=== PATIENT | female | born 1950 | race Caucasian/White ===

== ENCOUNTER 2020-12-30 11:24 | Outpatient (CLI) | payer MEDICARE, SELFPAY ==
--- NOTE | 2020-12-30 12:00 | MM_ITS ---
WS: [id number] BILATERAL SCREENING DIGITAL MAMMOGRAM WITH CAD HISTORY: screening mammogram COMPARISON: 06/22/2019 Bilateral CC and MLO views submitted. Computer aided detection analyzed. Breast composition: There are scattered areas of fibroglandular density. No suspicious masses, microc alcifications or architectural distortion. MM/[id number] IMPRESSION: BI-RADS: 1-Negative FOLLOW UP: 1 Year Follow-up
== END 2020-12-30 11:25 | disposition home or self-care (01) ==
LOC: RADSHAW 11:27
PROVIDERS: PCP Family Medicine; Visit Provider Family Medicine
DX: Z12.31 Encounter for screening mammogram for malignant neoplasm of breast (principal)
CPT/HCPCS: 77067

== ENCOUNTER → 2021-01-13 13:01 | Outpatient (BNVA) | payer MEDICARE, SELFPAY | PROVIDERS: PCP Family Medicine; Visit Provider Family Medicine | DX: Z13.6 Encounter for screening for cardiovascular disorders (principal); C18.9 Malignant neoplasm of colon, unspecified; R53.83 Other fatigue; E55.9 Vitamin D deficiency, unspecified; M25.551 Pain in right hip; Z68.1 Body mass index [BMI] 19.9 or less, adult | CPT/HCPCS: 85025 ==

== ENCOUNTER → 2021-01-14 09:38 | Outpatient (BNVA) | payer MEDICARE, SELFPAY | PROVIDERS: PCP Family Medicine; Visit Provider Family Medicine | DX: Z13.6 Encounter for screening for cardiovascular disorders (principal); C18.9 Malignant neoplasm of colon, unspecified; R53.83 Other fatigue; E55.9 Vitamin D deficiency, unspecified; M25.551 Pain in right hip; Z68.1 Body mass index [BMI] 19.9 or less, adult | CPT/HCPCS: 80053; 80061; 82306; 82378; 82607; 84439; 84443; 84481 ==

== ENCOUNTER 2021-02-06 06:00 | Outpatient (RCR) | payer MEDICARE, SELFPAY | END 2021-02-19 23:59 | disposition home or self-care (01) | LOC: SPT 06:00 | PROVIDERS: PCP Family Medicine; Referring Provider Family Medicine; Visit Provider Family Medicine | DX: M25.551 Pain in right hip (principal) | CPT/HCPCS: 97110; 97161 ==

== ENCOUNTER 2021-02-07 10:55 | Outpatient (CLI) | payer MEDICARE, SELFPAY ==
--- NOTE | 2021-02-10 10:27 | ONC CON_ITS ---
Dr. Garcia New Patient Note Patient: Emily Arias Unit #: [id number]: 1950 Dicatated By: Jose Garcia M.D.Date of Visit: Feb 07, 2021 Onc MED New Patient/Consult Referring Physician: Dr. JEAN PAUL SUN D.O. Chief Complaint: Elevated platelet count. History of Present Illness: This is a 70-year-old woman who has had persistent thrombocytosis since 2016, most likely to be due to essential thrombocythemia. She has been in good general health. She does have a history of having undergone partial colon resection for colon cancer in 1999. Those records are not available. By her description, the primary tumor was apparently in the area of the cecum. She thought it was an early lesion, but she was given adjuvant chemotherapy. There has been no evidence of recurrence. 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 Her evaluation showed no evidence for a reactive thrombocytosis. She was followed expectantly. As of April 2020 her platelet count had increased only slightly, to 534,000 with her hemoglobin normal at 13.7 g and white blood cell count normal 8300. She had recently moved to this area, and she is seen now for further management. As noted, she has been in good general health. She has been taking a vitamin supplement for osteopenia. She also takes progesterone every 3 days to help with mood swings. She has no other ongoing medical illnesses. She had recently started meloxicam for her acute onset of pain in the right posterior hip area. She also has started physical therapy for that. Her other surgeries include hysterectomy/bilateral salpingo-oophorectomy for uterine fibroid, appendectomy, tubal ligation, and tonsillectomy. She has a history of smoking 1/2 pack of cigarettes daily for 30 years, but she quit smoking in 2007. She has been feeling pretty good generally. She has good energy and activity tolerance. ECOG score is 0. She does not have good appetite, but her weight is stable. She has no fever, night sweats, or hot flashes. She does tend to have sinus drainage in the mornings. She does not complain of shortness of breath, cough, or chest pain. Recently she has had some diarrhea, attributable to the meloxicam. She has no other GI or complaints. She has had no other joint or bone pain. She does not complain of headache or dizziness, and she has no focal neurologic symptoms. Past Medical History: Her medical history includes osteopenia and a history of colon cancer in 1999. Past Surgical History: Her surgical/procedural history includes appendectomy, colon resection, hysterectomy/bilateral salpingectomy-oophorectomy, tonsillectomy, and tubal ligation. Medications: [place] Essentials Basic 1 Liquid Oral daily, Progesterone 1 (100 mg) Capsule Oral q 3 days, Turmeric 1 (100 mg) Tablet Oral daily. Allergies: No Known Allergies. Social History: She is , and she is retired. 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 She has a history of smoking 1/2 pack of cigarettes daily for 30 years. She quit smoking in 2007. She has only rare alcohol use. Family History: Father at age 89 with liver disease, presumed to be alcoholic cirrhosis. Mother had COPD but lived to age 90. She has one brother who she thinks is in good health. Review Of Symptoms: Constitutional - She has good energy and activity tolerance. Her appetite is not very good, but her weight is stable. No fever, night sweats, or hot flashes. ECOG score is 0, Eyes - She is being followed for early cataracts, ENMT - No hearing loss or tinnitus. She tends to have sinus drainage in the mornings. No mouth sores. No sore throat or difficulty swallowing, Hematologic/Lymphatic - No abnormal bruising or bleeding, Respiratory - No shortness of breath. No cough. No pleuritic pain or hemoptysis, Cardiovascular - No angina pain. No palpitations, Gastrointestinal - No nausea or vomiting. No heartburn or acid reflux. She has been having some diarrhea, which she thinks is due to the meloxicam. No blood in the stool or black stools, Genitourinary (F) - No dysuria or hematuria. No urinary frequency. She has mild stress incontinence, Musculoskeletal - She has been having pain in her right hip area since December. She is just started physical therapy. She has no other joint or bone pain, Integumentary - No skin rash or other skin problems, Neurologic - No headache or dizziness. No numbness or tingling. No other focal neurologic symptoms, Psychiatric - She has had some anxiety and depression. No insomnia. Vital Signs: Performed on Feb 07, 2021 11:30: 3, 3, 17.71 (LOW), 1.44 sq.m, 63 in, 98 %, 81 /min, 18 /min, 113/73 mm(hg), 98.7 F, and 100 lbs (HIGH). Physical Examination: Constitutional - She looks pretty good generally, Eyes - Sclerae nonicteric. Conjunctivae clear, ENMT - No lesions noted in the oral cavity, Neck - No mass or thyromegaly, Hematologic/Lymphatic - No cervical, clavicular, or axillary adenopathy, Respiratory - Lungs are clear with good air movement bilaterally, Cardiovascular - Heart rhythm is regular. There is no murmur, gallop, or rub noted, Abdomen - Soft and non-tender. Liver and spleen are not enlarged. There is no abdominal mass or ascites noted and there is no inguinal adenopathy, Back/Spine - No spine or CVA tenderness noted, Extremities - No edema. Posteror tibial pulses are palpable bilaterally, Integumentary - No rashes. No suspicious skin lesions noted, Neurologic - No focal neurologic deficits noted. Lab/Imaging: Her laboratory studies from 01/14/2021 included CBC showing hemoglobin 13.4 g with hematocrit 41.1%. The red cell indices were in the upper normal range. The white blood cell count was 7400 with differential showing 60% neutrophils, 28% lymphocytes, and 9% monocytes. The platelet count was elevated at 629,000. Comprehensive metabolic profile was unremarkable except for borderline renal function with BUN 19 and creatinine 1.0 mg/dL. Bilirubin and liver enzymes were normal. CEA was 4.5 ng/mL. Problem List: 1. Persistent thrombocytosis, most likely due to essential thrombocythemia. She is not symptomatic. 2. She has history of colon cancer with no recurrence following surgical resection in 1999 followed by adjuvant chemotherapy. 3. Osteopenia. Problems Addressed with this Encounter and Plan: 1. Patient with persistent thrombocytosis. With her platelet count gradually increasing and with no clinical evidence for reactive thrombocytosis, the probability is very high that she has essential thrombocythemia. She is not symptomatic. I went over the recent lab findings with her and we discussed the clinic complications. She very likely does have essential thrombocythemia. In the absence of any high risk indicators the prognosis is very favorable, and we can continue to manage this with aspirin prophylaxis. At least for now, her blood counts can be monitored at 6-month intervals. As such, I will plan to see her for follow-up visit in June with repeat CBC and CMP. At that time I also will check an LDH level and a molecular profile for myeloproliferative diseases. 2. She has history of colon cancer. There has been no evidence of recurrence. She should continue her surveillance colonoscopies and a yearly CEA level. Signed By: Jose Garcia M.D. <<Signature on File>>
== END 2021-02-07 10:56 | disposition home or self-care (01) ==
LOC: ONCMED 10:59
PROVIDERS: PCP Family Medicine; Visit Provider Internal Medicine Medical Oncology
DX: D47.3 Essential (hemorrhagic) thrombocythemia (principal); M85.80 Other specified disorders of bone density and structure, unspecified site; Z85.038 Personal history of other malignant neoplasm of large intestine; Z79.899 Other long term (current) drug therapy; Z92.21 Personal history of antineoplastic chemotherapy
CPT/HCPCS: 99204

== ENCOUNTER 2021-02-20 06:00 | Outpatient (RCR) | payer MEDICARE, SELFPAY | END 2021-03-22 23:59 | disposition home or self-care (01) | LOC: SPT 06:00 | PROVIDERS: PCP Family Medicine; Referring Provider Family Medicine; Visit Provider Family Medicine | DX: M25.551 Pain in right hip (principal) | CPT/HCPCS: 97110 ==

== ENCOUNTER 2021-07-29 11:31 | Outpatient (CLI) | payer MEDICARE, SELFPAY ==
[2021-07-29 12:29] LABS: Basophils % 0.6 %; Eosinophils % 0.6 %; Hemoglobin 13.6 g/dL (11.5-15.3); Lymphocytes # 1.9 10^3/uL (0.8-4.8); Lymphocytes % 26.8 %; Mean Corpuscular HGB Conc 33.2 g/dL (30.0-36.0); Mean Corpuscular Hemoglobin 30.4 pg (28.0-34.0); Mean Corpuscular Volume 91.7 fl (81-99); Mean Platelet Volume 8.8 fL (7.4-10.4); Monocytes # 0.7 10^3/uL (0.2-0.9); Neutrophils # 4.44 10^3/uL (1.8-7.7); Neutrophils % 61.7 %; Nucleated Red Blood Cells % 0 %; Platelet Count 699 10^3/cmm (130-400); Red Blood Count 4.47 10^6/uL (4.1-5.3); White Blood Count 7.2 10^3/uL (4.0-10.0)
[2021-07-29 12:51] LABS: Alanine Aminotransferase 10 U/L (0-33); Albumin Level 4.7 g/dL (3.5-5.2); Alkaline Phosphatase 96 IU/L (35-105); Aspartate Amino Transferase 20 U/L (0-32); Blood Urea Nitrogen 15 mg/dL (8-23); Calcium 9.3 mg/dL (8.5-10.5); Carbon Dioxide 25 mmol/L (22-29); Chloride 102 mmol/L (98-107); Globulin 2.7 g/dL (1.3-4.6); Glucose 84 mg/dL (65-115); Lactate Dehydrogenase 199 U/L (135-214); Osmolality Calculated 294 mOsm/kg (285-295); Sodium 142 mmol/L (136-145); Total Bilirubin 0.2 mg/dL (0.15-1.2); Total Protein 7.4 g/dL (6.6-8.7)
[2021-07-29 13:09] LABS: LAB Peripheral Smear Sent for Review
[2021-08-06 00:08] LABS: JAK2 V617 Block Specimen ID NG; JAK2 V617 Clinical Indication NG; JAK2 V617 Mutation DETECTED (NOT DETECTED); JAK2 V617 Specimen Source NG
[2021-08-07 09:13] LABS: CALR Exon 9 Mutation See Separate Report; Calreticulin Amino Acid See Separate Report; Calreticulin Assat Details See Separate Report; Calreticulin Exon See Separate Report; Calreticulin Gene See Separate Report; Calreticulin Mutation Frequenc See Separate Report; Calreticulin Mutation Interpre See Separate Report; Calreticulin Mutation Type See Separate Report; Calreticulin Nucleotide Change See Separate Report; Calreticulin Reference See Separate Report
[2021-08-07 09:16] LABS: Fish,CML/ALL, BCR/ABL Trans See Separate Report
== END 2021-07-29 11:32 | disposition home or self-care (01) ==
LOC: ONCMED 11:33
PROVIDERS: PCP Family Medicine; Visit Provider Internal Medicine Medical Oncology
DX: D47.3 Essential (hemorrhagic) thrombocythemia (principal); M85.80 Other specified disorders of bone density and structure, unspecified site; Z13.79 Encounter for other screening for genetic and chromosomal anomalies
CPT/HCPCS: 36415; 80053; 81219; 81270; 81339; 83615; 85025; 88271; 88275; 88374

== ENCOUNTER 2021-08-04 06:35 | Outpatient (CLI) | payer MEDICARE, SELFPAY ==
--- NOTE | 2021-08-04 12:25 | ONC FU_ITS ---
Dr. Garcia Patient Follow-Up Note Patient: Emily Arias Unit #: [id number]: 1950 Dicatated By: Jose Garcia M.D.Date of Visit:Aug 04, 2021 Onc Med Follow-up/Prog Note Chief Complaint: Elevated platelet count. History of Present Illness: This is a 71 year-old woman with persistent thrombocytosis since 2016, presumed to be due to essential thrombocythemia. She has a history of having undergone partial colon resection for colon cancer in 1999. Those records were not available. By her description, the primary tumor was apparently in the area of the cecum. She thought it was an early lesion, but she was given adjuvant chemotherapy. There has been no evidence of recurrence. 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 Her evaluation showed no evidence for a reactive thrombocytosis. She was followed expectantly. As of April 2020 her platelet count had increased only slightly, to 534,000 with her hemoglobin normal at 13.7 g and white blood cell count normal 8300. She had subsequently moved to this area. She was seen here initially on 02/07/2021. A CBC prior to that visit, from 01/14/2021, showed hemoglobin normal at 13.4 g with hematocrit 41.1%. The white blood cell count was 7400. The platelet count had increased to 629,000. Given the gradual increase in her platelet count, she appears to most likely have essential thrombocythemia. As she was not symptomatic, I opted to limit her treatment to aspirin prophylaxis. Her medical illnesses have otherwise been limited to osteopenia and degenerative arthritis Her other surgeries include hysterectomy/bilateral salpingo-oophorectomy for uterine fibroid, appendectomy, tubal ligation, and tonsillectomy. She has a history of smoking 1/2 pack of cigarettes daily for 30 years, but she quit smoking in 2007. She is seen for a follow-up visit. She says she has been feeling okay. She has never had a lot of energy, she has continued her normal activities. ECOG score 0. Her appetite is not the best. Her weight is up a couple of pounds. She does not have fever or night sweats. She complains that her head feels full when she first wakes up in the morning. She has not had sore mouth or throat. She has a little bit of a residual smoker's cough. She does not complain of shortness of breath or chest pain. She has no GI complaints other than her stools are sometimes loose. Her last colonoscopy was in 2018. She has no complaints. She has a little bit of arthritis pain, mainly in her hands. She does not complain of headache or dizziness, and she has no focal neurologic symptoms. She has a little bit of bruising on her aspirin prophylaxis. Medications: [place] Essentials Basic 1 Liquid Oral daily, Progesterone 1 (100 mg) Capsule Oral q 3 days, Turmeric 1 (100 mg) Tablet Oral daily Allergies: No Known Allergies. Vital Signs: Performed on Aug 04, 2021 09:50 Height - 63.00 in Weight - 102.6 lbs (HIGH) BSA - 1.46 sq.m BMI - 18.17 Temperature - 98.3 F (LOW) Pulse - 64 /min Respiration - 18 /min BP - 114/76 mm(hg) O2 Sat - 96 % Pain - 1 Fatigue - 2 Physical Examination: Constitutional - She looks pretty good generally, Eyes - Sclerae nonicteric. Conjunctivae clear, ENMT - No lesions noted in the oral cavity, Hematologic/Lymphatic - No cervical, clavicular, or axillary adenopathy, Respiratory - Lungs are clear with good air movement bilaterally, Cardiovascular - Heart rhythm is regular. There is no murmur, gallop, or rub noted, Abdomen - Soft. Liver and spleen are not enlarged. There is no abdominal mass or ascites noted and there is no inguinal adenopathy, Extremities - No edema, Neurologic - No focal neurologic deficits noted. Lab/Imaging: Test performed on Jul 29, 2021 12:10 LDH (Total) 199 U/L Sodium 142 mmol/L Potassium 4.0 mmol/L Chloride 102 mmol/L CO2 25 mmol/L Anion Gap 19.0 BUN 15 mg/dL Creatinine 0.9 mg/dL Cr Clearance (Est) 42.12 mL/min Glucose 84 mg/dL Osmolality - Calculated 294 mOsm/kg Calcium 9.3 mg/dL Protein, Total 7.4 g/dL Albumin 4.7 g/dL Globulin 2.7 g/dL Bilirubin, Total 0.2 mg/dL ALT (SGPT) 10 U/L AST (SGOT) 20 U/L Alkaline Phosphatase 96 IU/L WBC 7.2 10 3/uL RBC 4.47 10 6/uL HGB 13.6 g/dL HCT 41.0 % MCV 91.7 fl MCH 30.4 pg MCHC 33.2 g/dL RDW 14.0 % Platelet Count 699 10 3/cmm MPV 8.8 fL Neutrophils 4.44 10 3/uL Lymphocytes 1.9 10 3/uL Monocytes 0.7 10 3/uL Eosinophils 0.0 10 3/uL Basophils 0.0 10 3/uL Neutrophil % 61.7 % Lymphocyte % 26.8 % Monocyte % 10.0 % Eosinophil % 0.6 % Basophils % 0.6 % NRBC % 0 % Problem List: 1. Persistent thrombocytosis, most likely due to essential thrombocythemia. She is not symptomatic. 2. She has history of colon cancer with no recurrence following surgical resection in 1999 followed by adjuvant chemotherapy. 3. Osteopenia. Problems Addressed with this Encounter and Plan: 1. Patient with persistently elevated and gradually increasing platelet count. Clinically this appears consistent with essential thrombocythemia. She has not been symptomatic, treatment thus far has been limited to aspirin prophylaxis. As her platelet count is still only moderately elevated and she is not symptomatic, she will continue with aspirin prophylaxis but she will otherwise be followed expectantly. A molecular profile for myeloproliferative diseases is currently in progress. I will tentatively plan a follow-up visit in 6 months. 2. She has history of colon cancer. There has been no evidence of recurrence. She should be due for surveillance colonoscopy again in 2022. Signed By: Jose Garcia M.D. <<Signature on File>>
== END 2021-08-04 06:36 | disposition home or self-care (01) ==
LOC: ONCMED 06:35
PROVIDERS: PCP Family Medicine; Visit Provider Internal Medicine Medical Oncology
DX: D47.3 Essential (hemorrhagic) thrombocythemia (principal); M85.80 Other specified disorders of bone density and structure, unspecified site; Z85.038 Personal history of other malignant neoplasm of large intestine; Z87.891 Personal history of nicotine dependence
CPT/HCPCS: G0463

== ENCOUNTER 2021-09-03 11:26 | Outpatient (CLI) | payer MEDICARE, SELFPAY ==
[2021-09-03 12:13] LABS: Basophils % 0.4 %; Eosinophils % 0.2 %; Hematocrit 37.9 % (37.0-47.0); Hemoglobin 12.5 g/dL (11.5-15.3); Lymphocytes # 1.4 10^3/uL (0.8-4.8); Lymphocytes % 26.9 %; Mean Corpuscular Hemoglobin 31.1 pg (28.0-34.0); Mean Corpuscular Volume 94.3 fl (81-99); Mean Platelet Volume 8.4 fL (7.4-10.4); Monocytes # 0.4 10^3/uL (0.2-0.9); Monocytes % 8.1 %; Neutrophils # 3.24 10^3/uL (1.8-7.7); Neutrophils % 64.2 %; Nucleated Red Blood Cells % 0 %; Platelet Count 400 10^3/cmm (130-400); Red Blood Count 4.02 10^6/uL (4.1-5.3); Red Cell Distribution Width 15.1 % (12.1-15.1); White Blood Count 5.1 10^3/uL (4.0-10.0)
[2021-09-03 12:37] LABS: Alanine Aminotransferase 11 U/L (0-33); Albumin Level 4.2 g/dL (3.5-5.2); Alkaline Phosphatase 75 IU/L (35-105); Anion Gap 17.3 (5-19); Aspartate Amino Transferase 22 U/L (0-32); Blood Urea Nitrogen 15 mg/dL (8-23); Calcium 9.1 mg/dL (8.5-10.5); Carbon Dioxide 24 mmol/L (22-29); Chloride 102 mmol/L (98-107); Globulin 2.9 g/dL (1.3-4.6); Glucose 109 mg/dL (65-115); Lactate Dehydrogenase 198 U/L (135-214); Osmolality Calculated 289 mOsm/kg (285-295); Potassium 4.3 mmol/L (3.5-5.1); Sodium 139 mmol/L (136-145); Total Bilirubin 0.3 mg/dL (0.15-1.2); Total Protein 7.1 g/dL (6.6-8.7)
== END 2021-09-03 11:27 | disposition home or self-care (01) ==
LOC: ONCMED 11:30
PROVIDERS: PCP Family Medicine; Visit Provider Nurse Practitioner Family
DX: D75.838 Other thrombocytosis (principal)
CPT/HCPCS: 36415; 80053; 83615; 85025; 99214

== ENCOUNTER 2021-09-18 10:58 | Outpatient (CLI) | payer MEDICARE, SELFPAY ==
[2021-09-18 11:45] LABS: Basophils % 0.7 %; Eosinophils % 0.2 %; Hematocrit 38.6 % (37.0-47.0); Hemoglobin 13.1 g/dL (11.5-15.3); Lymphocytes # 1.2 10^3/uL (0.8-4.8); Lymphocytes % 27.7 %; Mean Corpuscular HGB Conc 33.9 g/dL (30.0-36.0); Mean Corpuscular Hemoglobin 33.2 pg (28.0-34.0); Mean Platelet Volume 8.1 fL (7.4-10.4); Monocytes # 0.6 10^3/uL (0.2-0.9); Monocytes % 14.6 %; Neutrophils % 56.3 %; Nucleated Red Blood Cells % 0 %; Platelet Count 315 10^3/cmm (130-400); Red Blood Count 3.94 10^6/uL (4.1-5.3); Red Cell Distribution Width 18.5 % (12.1-15.1); White Blood Count 4.3 10^3/uL (4.0-10.0)
[2021-09-18 12:03] LABS: Alanine Aminotransferase 9 U/L (0-33); Albumin Level 4.5 g/dL (3.5-5.2); Alkaline Phosphatase 79 IU/L (35-105); Anion Gap 17.4 (5-19); Aspartate Amino Transferase 22 U/L (0-32); Blood Urea Nitrogen 14 mg/dL (8-23); Calcium 10.2 mg/dL (8.5-10.5); Carbon Dioxide 24 mmol/L (22-29); Chloride 101 mmol/L (98-107); Globulin 2.9 g/dL (1.3-4.6); Glucose 107 mg/dL (65-115); Osmolality Calculated 287 mOsm/kg (285-295); Potassium 4.4 mmol/L (3.5-5.1); Sodium 138 mmol/L (136-145); Total Bilirubin 0.3 mg/dL (0.15-1.2); Total Protein 7.4 g/dL (6.6-8.7)
== END 2021-09-18 10:59 | disposition home or self-care (01) ==
LOC: ONCMED 11:00
PROVIDERS: PCP Family Medicine; Visit Provider Internal Medicine Medical Oncology
DX: D75.839 Thrombocytosis, unspecified (principal)
CPT/HCPCS: 36415; 80053; 85025

== ENCOUNTER 2021-10-02 09:53 | Outpatient (CLI) | payer MEDICARE, SELFPAY ==
[2021-10-02 10:38] LABS: Basophils % 0.9 %; Eosinophils % 0.2 %; Hematocrit 36.7 % (37.0-47.0); Hemoglobin 12.3 g/dL (11.5-15.3); Lymphocytes # 1.6 10^3/uL (0.8-4.8); Lymphocytes % 36.4 %; Mean Corpuscular HGB Conc 33.5 g/dL (30.0-36.0); Mean Corpuscular Hemoglobin 33.2 pg (28.0-34.0); Mean Corpuscular Volume 99.2 fl (81-99); Monocytes # 0.5 10^3/uL (0.2-0.9); Neutrophils # 2.26 10^3/uL (1.8-7.7); Neutrophils % 50.3 %; Nucleated Red Blood Cells % 0 %; Platelet Count 229 10^3/cmm (130-400); Red Cell Distribution Width 19.9 % (12.1-15.1); White Blood Count 4.5 10^3/uL (4.0-10.0)
[2021-10-02 11:38] LABS: Alanine Aminotransferase 12 U/L (0-33); Albumin Level 4.7 g/dL (3.5-5.2); Alkaline Phosphatase 69 IU/L (35-105); Anion Gap 16.3 (5-19); Aspartate Amino Transferase 21 U/L (0-32); Blood Urea Nitrogen 18 mg/dL (8-23); Calcium 10.3 mg/dL (8.5-10.5); Carbon Dioxide 25 mmol/L (22-29); Chloride 99 mmol/L (98-107); Globulin 2.7 g/dL (1.3-4.6); Glucose 87 mg/dL (65-115); Osmolality Calculated 283 mOsm/kg (285-295); Potassium 4.3 mmol/L (3.5-5.1); Sodium 136 mmol/L (136-145); Total Bilirubin 0.3 mg/dL (0.15-1.2); Total Protein 7.4 g/dL (6.6-8.7)
--- NOTE | 2021-10-05 10:54 | ONC FU_ITS ---
Dr. Garcia Patient Follow-Up Note Patient: Emily Arias Unit #: [id number]: 1950 Dicatated By: Jose Garcia M.D.Date of Visit:Oct 02, 2021 Onc Med Follow-up/Prog Note Chief Complaint: Essential thrombocythemia. History of Present Illness: This is a 71 year-old woman with essential thrombocythemia, JAK2 V617F mutation positive. 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 Her evaluation showed no evidence for a reactive thrombocytosis. She was followed expectantly. As of April 2020 her platelet count had increased only slightly, to 534,000 with her hemoglobin normal at 13.7 g and white blood cell count normal 8300. She had subsequently moved to this area. She was seen here initially on 02/07/2021. A CBC prior to that visit, from 01/14/2021, showed hemoglobin normal at 13.4 g with hematocrit 41.1%. The white blood cell count was 7400. The platelet count had increased to 629,000. Given the gradual increase in her platelet count, she appeared to most likely have essential thrombocythemia. As she was not symptomatic, I had initially opted to limit her treatment to aspirin prophylaxis. Her further evaluation in July 2021 included molecular profiling which confirmed a JAK2 V617F mutation. With that finding and with age over 60, she was determined to be in a high risk category, and per NCCN guidelines she was recommended to start treatment with hydroxyurea. She has additional history of having undergone partial colon resection for colon cancer in 1999. Those records were not available. By her description, the primary tumor was apparently in the area of the cecum. She was given adjuvant chemotherapy. There has been no evidence of recurrence. Her other medical illnesses have otherwise been limited to osteopenia and degenerative arthritis Her other surgeries include hysterectomy/bilateral salpingo-oophorectomy for uterine fibroid, appendectomy, tubal ligation, and tonsillectomy. She has a history of smoking 1/2 pack of cigarettes daily for 30 years, but she quit smoking in 2007. INTERIM HISTORY: On 08/13/2021 she began treatment with hydroxyurea, initially at 500 mg twice daily. She also continued aspirin prophylaxis. She is seen for a follow-up visit. She has been feeling pretty good generally, though she has been a little more tired since starting the hydroxyurea. She still has normal activity. ECOG score is 0. She has good appetite. She has not had fever. She sometimes has sweating at night. She has not had sore mouth or throat, but she has been having some nasal discharge, sometimes with blood in it. She was given antibiotic therapy with Augmentin. She has a smoker's cough. She does not complain of shortness of breath or chest pain. She has a little bit of heartburn. She tends to have loose stools, but that is chronic. She has no complaints. She has had some pain in her left shoulder, but no other joint or bone pain. She does not complain of headache or dizziness, and she has no focal neurologic symptoms. She has not had abnormal bruising. Medications: [place] Essentials Basic 1 Liquid Oral daily, Progesterone 1 (100 mg) Capsule Oral q 3 days, Turmeric 1 (100 mg) Tablet Oral daily Allergies: No Known Allergies. Vital Signs: Performed on Oct 02, 2021 13:54 Height - 63.00 in Weight - 107.0 lbs (HIGH) BSA - 1.48 sq.m BMI - 18.95 Temperature - 98.0 F (LOW) Pulse - 80 /min Respiration - 16 /min BP - 126/70 mm(hg) O2 Sat - 94 % (LOW) Pain - 2 Fatigue - 3 Physical Examination: Constitutional - She looks pretty good generally, Eyes - Sclerae nonicteric. Conjunctivae clear, ENMT - No lesions noted in the oral cavity, Hematologic/Lymphatic - No cervical, clavicular, or axillary adenopathy, Respiratory - Lungs are clear with good air movement bilaterally, Cardiovascular - Heart rhythm is regular. There is no murmur, gallop, or rub noted, Abdomen - Soft. Liver and spleen are not enlarged. There is no abdominal mass or ascites noted and there is no inguinal adenopathy, Extremities - No edema, Neurologic - No focal neurologic deficits noted. Lab/Imaging: CBC shows hemoglobin 12.3 g, white blood cell count 4500, and platelet count 229,000. Comprehensive metabolic profile is unremarkable. Problem List: 1. Essential thrombocythemia, JAK2 V617F mutation positive. 2. She has history of colon cancer with no recurrence following surgical resection in 1999 followed by adjuvant chemotherapy. 3. Osteopenia. 4. Depression. Problems Addressed with this Encounter and Plan: Patient with essential thrombocythemia, JAK2 V617F mutation positive. She was initially managed with aspirin prophylaxis. However, with the finding of the JAK2 gene mutation and with her age greater than 60, she was determined to be in high risk category. Per NCCN guidelines, she was recommended to begin treatment with hydroxyurea. She initially began on hydroxyurea 500 mg twice daily in July 2021. She has been having some mild fatigue with it, but she has otherwise been tolerating it well. She is showing a significant response, and with her platelet count now down to 229,000 she will reduce the hydroxyurea dosage to 500 mg once daily. Blood counts will be monitored monthly. I will see her again in 3 months. Signed By: Jose Garcia M.D. <<Signature on File>>
== END 2021-10-02 09:54 | disposition home or self-care (01) ==
PROVIDERS: PCP Family Medicine; Visit Provider Internal Medicine Medical Oncology
DX: D69.3 Immune thrombocytopenic purpura (principal); F32.A Depression, unspecified; M85.80 Other specified disorders of bone density and structure, unspecified site; Z79.899 Other long term (current) drug therapy; Z85.038 Personal history of other malignant neoplasm of large intestine
CPT/HCPCS: 36415; 80053; 85025; 99214

== ENCOUNTER 2021-10-30 12:51 | Outpatient (CLI) | payer MEDICARE, SELFPAY ==
[2021-10-30 13:37] LABS: Basophils % 0.4 %; Eosinophils % 0.6 %; Hematocrit 34.6 % (37.0-47.0); Hemoglobin 11.5 g/dL (11.5-15.3); Lymphocytes # 1.8 10^3/uL (0.8-4.8); Lymphocytes % 33.4 %; Mean Corpuscular HGB Conc 33.2 g/dL (30.0-36.0); Mean Corpuscular Volume 105.2 fl (81-99); Mean Platelet Volume 8.4 fL (7.4-10.4); Monocytes # 0.7 10^3/uL (0.2-0.9); Neutrophils # 2.86 10^3/uL (1.8-7.7); Neutrophils % 52.4 %; Nucleated Red Blood Cells % 0 %; Platelet Count 340 10^3/cmm (130-400); Red Blood Count 3.29 10^6/uL (4.1-5.3); White Blood Count 5.5 10^3/uL (4.0-10.0)
[2021-10-30 13:54] LABS: Alanine Aminotransferase 11 U/L (0-33); Albumin Level 4.4 g/dL (3.5-5.2); Alkaline Phosphatase 76 IU/L (35-105); Anion Gap 16.4 (5-19); Aspartate Amino Transferase 18 U/L (0-32); Blood Urea Nitrogen 15 mg/dL (8-23); Calcium 9.7 mg/dL (8.5-10.5); Carbon Dioxide 26 mmol/L (22-29); Chloride 103 mmol/L (98-107); Globulin 2.6 g/dL (1.3-4.6); Glucose 128 mg/dL (65-115); Osmolality Calculated 294 mOsm/kg (285-295); Potassium 4.4 mmol/L (3.5-5.1); Sodium 141 mmol/L (136-145); Total Bilirubin 0.2 mg/dL (0.15-1.2)
[2021-10-30 14:06] LABS: Add RBC Morph No; Slide Review Slide Review Perform
== END 2021-10-30 12:52 | disposition home or self-care (01) ==
PROVIDERS: PCP Family Medicine; Visit Provider Internal Medicine Medical Oncology
DX: D69.3 Immune thrombocytopenic purpura (principal)
CPT/HCPCS: 36415; 80053; 85025

== ENCOUNTER 2021-12-01 13:00 | Outpatient (CLI) | payer MEDICARE, SELFPAY ==
[2021-12-01 13:55] LABS: Basophils % 0.5 %; Eosinophils % 0.3 %; Hematocrit 36.2 % (37.0-47.0); Hemoglobin 12.1 g/dL (11.5-15.3); Lymphocytes % 32.8 %; Mean Corpuscular HGB Conc 33.4 g/dL (30.0-36.0); Mean Corpuscular Hemoglobin 36.2 pg (28.0-34.0); Mean Corpuscular Volume 108.4 fl (81-99); Mean Platelet Volume 8.3 fL (7.4-10.4); Monocytes # 0.6 10^3/uL (0.2-0.9); Monocytes % 10.2 %; Neutrophils # 3.47 10^3/uL (1.8-7.7); Nucleated Red Blood Cells % 0 %; Platelet Count 303 10^3/cmm (130-400); Red Blood Count 3.34 10^6/uL (4.1-5.3); Red Cell Distribution Width 14.6 % (12.1-15.1); White Blood Count 6.2 10^3/uL (4.0-10.0)
[2021-12-01 14:15] LABS: Alanine Aminotransferase 10 U/L (0-33); Albumin Level 4.5 g/dL (3.5-5.2); Alkaline Phosphatase 79 IU/L (35-105); Aspartate Amino Transferase 16 U/L (0-32); Blood Urea Nitrogen 15 mg/dL (8-23); Calcium 9.9 mg/dL (8.5-10.5); Carbon Dioxide 28 mmol/L (22-29); Chloride 99 mmol/L (98-107); Globulin 3.2 g/dL (1.3-4.6); Glucose 102 mg/dL (65-115); Osmolality Calculated 287 mOsm/kg (285-295); Sodium 138 mmol/L (136-145); Total Bilirubin 0.3 mg/dL (0.15-1.2); Total Protein 7.7 g/dL (6.6-8.7)
== END 2021-12-01 13:01 | disposition home or self-care (01) ==
LOC: ONCMED 13:04
PROVIDERS: PCP Family Medicine; Visit Provider Internal Medicine Medical Oncology
DX: D47.3 Essential (hemorrhagic) thrombocythemia (principal)
CPT/HCPCS: 36415; 80053; 85025

== ENCOUNTER → 2021-12-22 11:27 | Outpatient (BNVA) | payer MEDICARE, SELFPAY | PROVIDERS: PCP Family Medicine; Visit Provider Family Medicine | DX: R53.83 Other fatigue (principal); C18.9 Malignant neoplasm of colon, unspecified; E55.9 Vitamin D deficiency, unspecified; Z13.6 Encounter for screening for cardiovascular disorders | CPT/HCPCS: 80061; 82306; 82378; 84443 ==

== ENCOUNTER 2021-12-30 12:31 | Oncology outpatient (recurring) (ONCR) | payer MEDICARE, SELFPAY ==
[2021-12-30 12:52] LABS: Basophils % 0.4 %; Eosinophils % 0.2 %; Hematocrit 35.5 % (37.0-47.0); Lymphocytes # 2.2 10^3/uL (0.8-4.8); Lymphocytes % 38.9 %; Mean Corpuscular HGB Conc 33.8 g/dL (30.0-36.0); Mean Corpuscular Hemoglobin 37.3 pg (28.0-34.0); Mean Corpuscular Volume 110.2 fl (81-99); Mean Platelet Volume 8.3 fL (7.4-10.4); Monocytes # 0.5 10^3/uL (0.2-0.9); Monocytes % 8.1 %; Neutrophils # 2.96 10^3/uL (1.8-7.7); Neutrophils % 52.4 %; Nucleated Red Blood Cells % 0 %; Platelet Count 304 10^3/cmm (130-400); Red Blood Count 3.22 10^6/uL (4.1-5.3); Red Cell Distribution Width 11.8 % (12.1-15.1); White Blood Count 5.7 10^3/uL (4.0-10.0)
[2021-12-30 13:13] LABS: Alanine Aminotransferase 10 U/L (0-33); Albumin Level 4.5 g/dL (3.5-5.2); Alkaline Phosphatase 79 IU/L (35-105); Anion Gap 14.1 (5-19); Aspartate Amino Transferase 19 U/L (0-32); Blood Urea Nitrogen 16 mg/dL (8-23); Calcium 10.1 mg/dL (8.5-10.5); Carbon Dioxide 28 mmol/L (22-29); Chloride 101 mmol/L (98-107); Globulin 3.2 g/dL (1.3-4.6); Glucose 111 mg/dL (65-115); Lactate Dehydrogenase 192 U/L (135-214); Osmolality Calculated 290 mOsm/kg (285-295); Potassium 4.1 mmol/L (3.5-5.1); Sodium 139 mmol/L (136-145); Total Bilirubin 0.3 mg/dL (0.15-1.2); Total Protein 7.7 g/dL (6.6-8.7)
== END 2022-01-20 23:59 | disposition home or self-care (01) ==
PROVIDERS: PCP Family Medicine; Referring Provider Family Medicine; Visit Provider Internal Medicine Medical Oncology
DX: D47.3 Essential (hemorrhagic) thrombocythemia (principal); Z79.82 Long term (current) use of aspirin; Z79.899 Other long term (current) drug therapy; Z85.038 Personal history of other malignant neoplasm of large intestine; Z87.891 Personal history of nicotine dependence
CPT/HCPCS: 80053; 83615; 85025; 99214; 99999

== ENCOUNTER → 2022-01-28 10:27 | Outpatient (BNVA) | payer MEDICARE, SELFPAY | PROVIDERS: PCP Family Medicine; Referring Provider Family Medicine; Visit Provider Surgery | DX: R19.7 Diarrhea, unspecified (principal); K92.1 Melena | CPT/HCPCS: 99203 ==

== ENCOUNTER 2022-02-06 08:54 | Emergency (ER) | payer MEDICARE, SELFPAY ==
[2022-02-06 09:23] VITALS: BP 111/75; PULSE 106; RESP 16; TEMP 37.1; O2SAT 99; BMI 16.1
--- NOTE | 2022-02-06 11:24 | W.ED.GENADLT ---
HPI - General Adult General: Chief complaint: Weakness Stated complaint: weakness/nausea/unexpected weight loss Time Seen by Provider: 02/06/22 11:11 History of Present Illness: Patient is a 71-year-old female history of prior colon cancer, essential thrombocythemia who presents the emergency room evaluation of generalized weakness, decreased p.o. intake and fatigue since a week ago. Patient tells me that she was outside in the sun about a week ago and since then has not been feeling well. Patient reports she has diffuse abdominal pain fever this afternoon and thinks that she has an ulcer. Patient denies any fever/chills, melena/hematochezia or complaints. Patient tells me that she chronically has diarrhea that has not worsened. Patient denies any cough, runny nose sore throat fever or chills, chest pain, shortness breath or palpitation. Onset:1 week ago Duration:1 week Location:home Severity:moderate Associated symptoms: Reports malaise; Deny chest pain, dyspnea, nausea, rash, palpitations or vomiting Review of Systems Const: Reports: fatigue, malaise and other (+generalized weakness); Denies: fever(s) or chills Eyes: Denies: change in vision ENMT: Denies: mouth pain Card: Denies: chest pain or palpitations Resp: Denies: dyspnea or non-productive cough GI: Reports: abdominal pain, diarrhea and other (+decreased PO intake); Denies: nausea or vomiting : Denies: dysuria Musc: Denies: extremity pain Skin/Breast: Denies: rash or new lesions Neuro: Denies: weakness in extremities Psych: Reports: other (Normal mood) Gaurang/Lymph: Denies: easy bruising PFSH ED PFSH: Medical History Degenerative arthritis Depression Essential thrombocythemia Fungal infection of nail History of colon cancer diagnosed in 1999 Osteopenia Poor circulation of extremity Surgical History H/O tubal ligation H/O: hysterectomy History of appendectomy History of colon resection Family History Other CAD (coronary artery disease) Lung disease Stroke Social History Smoking and tobacco status: former smoker (quit 2007) Alcohol intake: never Physical Exam Const: COMMON NORMALS: alert HENMT: COMMON NORMALS: atraumatic HEAD & SCALP: atraumatic MOUTH: moist mucous membranes abnormal Eye: COMMON NORMALS: EOMs intact bilaterally and conjunctivae normal CONJUNCTIVA: Yes conjunctivae normal Neck/C-Spine: COMMON NORMALS: full ROM and supple Resp: COMMON NORMALS: normal respiratory effort and clear to auscultation bilaterally AUSCULTATION: clear to auscultation bilaterally Cardio: COMMON NORMALS: regular rate RATE: regular rate GI: COMMON NORMALS: Soft to palpation PALPATION: Yes Soft to palpation OTHER: No focal TTP. NO guarding rebound, guarding, rigidity. No CVA tenderness to percussion. Neg Silver/Neg McBurney's point tenderness, no suprabupic tenderness to palpation. Extremity: COMMON NORMALS: full ROM Neuro: SENSORIUM/ORIENTATION: Yes alert MOTOR EXAM: No Abnormal motor strength present and Other motor observations present (no focal motor deficits) Psych: COMMON NORMALS: speech normal SPEECH: Yes normal speech MOOD & AFFECT: Yes euthymic mood Course Vital Signs: Vital signs: Vital Signs Temperature 98.8 F 02/06/22 14:05 Pulse Rate 106 H 02/06/22 14:05 Respiratory Rate 16 02/06/22 14:05 Blood Pressure 111/75 02/06/22 14:05 Pulse Oximetry 99 02/06/22 14:05 [facility] - General Adult Medical Decision Making 71-year-old female with history of prior colon cancer, essential thrombocythemia presenting to the emergency room for evaluation of generalized weakness, fatigue, decreased p.o. intake x1 week. On exam, patient appears to be dry. Patient has no focal abdominal tenderness. Patient has no leukocytosis. Patient received GI cocktail reports symptomatic improvement. Troponin x2 similar to baseline. EKG is nonischemic. Patient has no complaint of chest and will observe the emergency room. No suspicion for other acute intra-abdominal pathology including SBO, biliary pathology, appendicitis, diverticulitis, or other emergent condition requiring surgery. Rx tylenol PRN abd pain, maalox/pepcid PRN dyspepsia, and zofran PRN nausea/vomiting Disposition: Discharge. Patient counseled regarding diagnostic impression, treatment plan. Patient given ED strict return precautions to return for continuation, worsening, or development of new symptoms. Instructed to f/u w/ PCP regarding symptoms today. Patient verbalized understanding. Lab Data : 02/06/22 12:00 02/06/22 12:00 Laboratory Results WBC 5.6 10^3/uL (4.0-10.0) 02/06/22 12:00 RBC 3.97 10^6/uL (4.1-5.3) L 02/06/22 12:00 Hgb 14.3 g/dL (11.5-15.3) 02/06/22 12:00 Hct 39.6 % (37.0-47.0) 02/06/22 12:00 MCV 99.7 fl (81-99) H 02/06/22 12:00 MCH 36.0 pg (28.0-34.0) H 02/06/22 12:00 MCHC 36.1 g/dL (30.0-36.0) H 02/06/22 12:00 RDW 11.8 % (12.1-15.1) L 02/06/22 12:00 Plt Count 258 10^3/cmm (130-400) 02/06/22 12:00 MPV 9.0 fL (7.4-10.4) 02/06/22 12:00 Neut % (Auto) 53.7 % 02/06/22 12:00 Lymph % (Auto) 29.5 % 02/06/22 12:00 [place] % (Auto) 16.0 % 02/06/22 12:00 Eos % (Auto) 0.2 % 02/06/22 12:00 Baso % (Auto) 0.2 % 02/06/22 12:00 Neut # (Auto) 3.02 10^3/uL (1.8-7.7) 02/06/22 12:00 Lymph # (Auto) 1.7 10^3/uL (0.8-4.8) 02/06/22 12:00 [place] # (Auto) 0.9 10^3/uL (0.2-0.9) 02/06/22 12:00 Eos # (Auto) 0.0 10^3/uL (0.0-0.8) 02/06/22 12:00 Baso # (Auto) 0.0 10^3/uL (0.0-0.1) 02/06/22 12:00 Nucleated RBC % (auto) 0 % 02/06/22 12:00 Nucleated RBCs # 0.0 /100WBC 02/06/22 12:00 Sodium 136 mmol/L (136-145) 02/06/22 12:00 Potassium 3.7 mmol/L (3.5-5.1) 02/06/22 12:00 Chloride 95 mmol/L (98-107) L 02/06/22 12:00 Carbon Dioxide 24 mmol/L (22-29) 02/06/22 12:00 Anion Gap 20.7 (5-19) H 02/06/22 12:00 BUN 19 mg/dL (8-23) 02/06/22 12:00 Creatinine 1.2 mg/dL (0.5-0.9) H 02/06/22 12:00 GFR Calculation Not Reportable 02/06/22 12:00 Glucose 106 mg/dL (65-115) 02/06/22 12:00 Calculated Osmolality 285 mOsm/kg (285-295) 02/06/22 12:00 Calcium 10.0 mg/dL (8.5-10.5) 02/06/22 12:00 Total Bilirubin 0.6 mg/dL (0.15-1.2) 02/06/22 12:00 AST 29 U/L (0-32) 02/06/22 12:00 ALT 20 U/L (0-33) 02/06/22 12:00 Alkaline Phosphatase 103 IU/L (35-105) 02/06/22 12:00 Troponin T Baseline 14 ng/L (0-10) H 02/06/22 12:00 Troponin T 120 Minute 8.89 ng/L (0-10) 02/06/22 14:19 Total Protein 8.0 g/dL (6.6-8.7) 02/06/22 12:00 Albumin 5.0 g/dL (3.5-5.2) 02/06/22 12:00 Globulin 3.0 g/dL (1.3-4.6) 02/06/22 12:00 Lipase 26 U/L (13-60) 02/06/22 12:00 Discharge Plan Discharge Patient Disposition: Home Clinical Impression: Generalized weakness, Fatigue, Abdominal pain Condition: Stable Prescriptions: New Pepcid 20 mg tablet 20 mg PO BID PRN (Reason: abdominal pain) 10 Days Qty: 20 0RF ondansetron 4 mg tablet,disintegrating 4 mg PO TID PRN (Reason: nausea and vomiting) 4 Days Qty: 12 0RF Maalox Advanced 1,000-60 mg tablet,chewable 1 tab PO TID PRN (Reason: abdominal pain) 7 Days Qty: 21 0RF No Action aspirin 81 mg tablet,delayed release (DR/EC) 81 mg PO DAILY 0RF progesterone micronized 100 mg capsule 100 mg PO Q3D 90 Days Qty: 40 0RF Doterra On Guard Softgels 1 cap PO DAILY 0RF Apple Cider Vinegar Gummies 2 tab PO DAILY 0RF vitamin E 400 unit Capsule 400 unit PO DAILY 0RF Collagen Gummies 4 tab PO DAILY 0RF Curcumin Tabs 1 tab PO DAILY 0RF Multivitamin Packs See Rx Instructions .ROUTE .COMPLEX 0RF Rx Instructions: takes one am pack one day and then the next day alternates with the night time pack Vitamin D3 See Rx Instructions .ROUTE .COMPLEX 0RF Rx Instructions: takes one cap po on days taking the am day vitamin pack hydroxyurea 500 mg capsule 500 mg PO QAM 0RF Discharge Orders: Discharge ED (Routine); Ordered 02/06/22 Ordered By: Zbigniew Velez Referrals: Sonia Willard DO [Primary Care Provider] - Patient Instructions: Abdominal Pain (ED) Activity Restrictions/Additional Instructions: Please come back if you have any worsening abdominal pain, fever or chills, nausea or vomiting, diarrhea, blood in the stool, inability hold down liquid or solids, or any new concerning complaints. Coding Level of Care Code ED Tobacco Curer for Chg Fwd Exam Comprehensive
--- NOTE | 2022-02-06 11:37 | PC.PHAR ---
pt states she takes care of her own medications-pt states she takes a multivitamin pack and alternates with daytime one day and nighttime packs the next-pt had copy of back of vitamin box it was given to -notes are made in the pharmacy comments
[2022-02-06] MEDS: lidocaine 2% viscous 15 ML, aluminum-mag hydrox-simethicon 30 ML, sucralfate oral liq 1 GM PO (12:15)
[2022-02-06] MEDS: sodium chloride 0.9% 1,000 ML 999 ML IV (12:16)
[2022-02-06 12:28] LABS: Basophils % 0.2 %; Eosinophils % 0.2 %; Hematocrit 39.6 % (37.0-47.0); Hemoglobin 14.3 g/dL (11.5-15.3); Lymphocytes # 1.7 10^3/uL (0.8-4.8); Lymphocytes % 29.5 %; Mean Corpuscular HGB Conc 36.1 g/dL (30.0-36.0); Mean Corpuscular Volume 99.7 fl (81-99); Monocytes # 0.9 10^3/uL (0.2-0.9); Neutrophils # 3.02 10^3/uL (1.8-7.7); Neutrophils % 53.7 %; Nucleated Red Blood Cells % 0 %; Platelet Count 258 10^3/cmm (130-400); Red Blood Count 3.97 10^6/uL (4.1-5.3); Red Cell Distribution Width 11.8 % (12.1-15.1); White Blood Count 5.6 10^3/uL (4.0-10.0)
[2022-02-06 12:51] LABS: Alanine Aminotransferase 20 U/L (0-33); Alkaline Phosphatase 103 IU/L (35-105); Anion Gap 20.7 (5-19); Aspartate Amino Transferase 29 U/L (0-32); Blood Urea Nitrogen 19 mg/dL (8-23); Carbon Dioxide 24 mmol/L (22-29); Chloride 95 mmol/L (98-107); Glucose 106 mg/dL (65-115); Lipase 26 U/L (13-60); Osmolality Calculated 285 mOsm/kg (285-295); Potassium 3.7 mmol/L (3.5-5.1); Sodium 136 mmol/L (136-145); Total Bilirubin 0.6 mg/dL (0.15-1.2)
[2022-02-06 12:52] LABS: Troponin(5th) Baseline 14 ng/L (0-10)
--- NOTE | 2022-02-06 13:29 | ECG_ITS ---
[facility] Test Date: 2022-02-06 Pat Name: Emily Arias Department: Room: Gender: Female Creative Specialist: : 1950 Requested By: Zbigniew Velez Order Number: [id number] Jacky MD: Zaid Monson M.D. Measurements Intervals [place] Rate: P: AK: QRS: QRSD: T: QT: QTc: Interpretive Statements SINUS BRADYCARDIA No previous ECG available for comparison Electronically Signed On 02-06-2022 20:46:54 CDT by Zaid Monson M.D. [id number]
[2022-02-06 14:05] VITALS: BP 111/75; PULSE 106; RESP 16; TEMP 37.1; O2SAT 99
[2022-02-06 14:50] LABS: Troponin 5 2HR 8.89 ng/L (0-10)
[2022-02-06 15:21] LABS: Troponin 5 2HR Delta -5.11 ABS# (0-10)
[2022-02-06 15:26] VITALS: BP 107/70; PULSE 84; RESP 16; TEMP 36; O2SAT 97
== END 2022-02-06 15:28 | disposition home or self-care (01) ==
PROVIDERS: Emergency Provider Emergency Medicine; PCP Family Medicine
DX: R53.1 Weakness (principal); R53.83 Other fatigue; R10.9 Unspecified abdominal pain; R19.7 Diarrhea, unspecified; R53.81 Other malaise; Z85.038 Personal history of other malignant neoplasm of large intestine; Z90.49 Acquired absence of other specified parts of digestive tract; Z90.710 Acquired absence of both cervix and uterus; Z90.89 Acquired absence of other organs; Z87.891 Personal history of nicotine dependence
CPT/HCPCS: 36415; 80053; 83690; 84484; 85025; 93005; 96360; 99285; J7030

== ENCOUNTER 2022-03-12 05:55 | Day surgery (SDC) | payer MEDICARE, SELFPAY ==
[2022-03-10 09:02] VITALS: BMI 17.6
[2022-03-12 06:47] VITALS: BP 109/56; PULSE 69; RESP 18; TEMP 36.6; O2SAT 99
[2022-03-12] MEDS: sodium chloride 0.9% 1,000 ML 30 ML IV (07:00)
--- NOTE | 2022-03-12 07:05 | ANES.PREANE2 ---
Pre-Anesthetic Assessment Height/Weight: Height 1.6 m Weight 45.359 kg Temp Pulse Resp BP Pulse Ox 97.9 F 69 18 109/56 99 03/12/22 06:47 03/12/22 06:47 03/12/22 06:47 03/12/22 06:47 03/12/22 06:47 Preop Diagnosis: screening Operation Date: 03/12/22 07:30 Proposed Procedures p Colonoscopy 89421,K92.1(Not Applicable) - Dimas Hudson DO Familial anesthetic complications: none Was Beta Todd taken within 24 hours: N/A Was Clonidine taken within 24 hours: N/A Last intake: Intake Last Liquid Date 03/11/22 Last Liquid Time 21:00 Last Solid Date 03/10/22 Last Intake: 21:00 Social No alcohol and No tobacco Exam alert, oriented x 3, clear to auscultation bilaterally and regular rate & rhythm Airway Submandibular: within normal limits Cervical ROM: within normal limits Mallampati: Class II Dentition: false (upper) Pulmonary Cough (stop smoking 10years ago) and None reported CV/HEM MVP None reported Hepatic None reported GI Gastroesophageal Reflux Disease HX colon CA with resection Metabolic None reported Musc/skel None reported Neuropsych None reported Anesthetic Plan ASA status: 2 Anesthesia: MAC Medications/Allergies Home Medications Medication Instructions Recorded Confirmed Last Taken Type aspirin 81 mg tablet,delayed 81 mg PO DAILY 11/18/20 03/10/22 Unknown History release Apple Cider Vinegar Gummies 2 tab PO DAILY 02/06/22 03/10/22 Unknown History Collagen Gummies 4 tab PO DAILY 02/06/22 03/10/22 Unknown History Curcumin Tabs 1 tab PO DAILY 02/06/22 03/10/22 Unknown History Doterra On Guard Softgels 1 cap PO DAILY 02/06/22 03/10/22 Unknown History Multivitamin Packs See Rx Instructions .ROUTE .COMPLEX 02/06/22 03/10/22 Unknown History Vitamin D3 See Rx Instructions .ROUTE .COMPLEX 02/06/22 03/10/22 Unknown History hydroxyurea 500 mg capsule 500 mg PO QAM 02/06/22 03/10/22 Unknown History vitamin E 400 unit capsule 400 unit PO DAILY 02/06/22 03/10/22 Unknown History progesterone micronized 100 mg 100 mg PO Q3D 90 Days #40 cap 02/25/22 03/10/22 Unknown Rx capsule ascorbic acid (vitamin C) 1,500 mg 1,500 mg PO DAILY 03/10/22 03/10/22 Unknown History tablet,extended release Allergies Allergy/AdvReac Type Severity Reaction Status Date / Time No Known Allergies Allergy Verified 03/10/22 08:55 Current Medications Generic Name Dose Route Start Last Admin Trade Name Robertq PRN Reason Stop Dose Admin Sodium Chloride 1,000 mls @ 30 mls/hr 03/12/22 06:15 03/12/22 07:00 Sodium Chloride 0.9% IV 03/13/22 06:14 30 mls/hr .Q24H HASMUKH Administration PFSH Anesthesia Medical History Degenerative arthritis Depression Essential thrombocythemia Fungal infection of nail History of colon cancer diagnosed in 1999 Osteopenia Poor circulation of extremity Surgical History H/O tubal ligation H/O: hysterectomy History of appendectomy History of colon resection Family History Other CAD (coronary artery disease) Lung disease Stroke Social History Smoking and tobacco status: current every day smoker Alcohol intake: never Data Anesthesia Cardiac Studies: No Data to Display
--- NOTE | 2022-03-12 07:55 | PM.HP ---
Providers/Chief Complaint Primary Care Provider: Sonia Willard DO Chief Complaint: Diarrhea and hematochezia History of Present Illness Emily Arias is a 71 year old female who presented to office with complaints of diarrhea and hematochezia. She has 3 loose bowel movements a day. She has a history of colon cancer with colon resection. This is an update H&P Review of Systems General: Reports: 10 or more systems reviewed and unremarkable except in HPI and below Medications/Allergies Home Medications Medication Instructions Recorded Confirmed Last Taken Type aspirin 81 mg tablet,delayed 81 mg PO DAILY 11/18/20 03/10/22 Unknown History release Apple Cider Vinegar Gummies 2 tab PO DAILY 02/06/22 03/10/22 Unknown History Collagen Gummies 4 tab PO DAILY 02/06/22 03/10/22 Unknown History Curcumin Tabs 1 tab PO DAILY 02/06/22 03/10/22 Unknown History Doterra On Guard Softgels 1 cap PO DAILY 02/06/22 03/10/22 Unknown History Multivitamin Packs See Rx Instructions .ROUTE .COMPLEX 02/06/22 03/10/22 Unknown History Vitamin D3 See Rx Instructions .ROUTE .COMPLEX 02/06/22 03/10/22 Unknown History hydroxyurea 500 mg capsule 500 mg PO QAM 02/06/22 03/10/22 Unknown History vitamin E 400 unit capsule 400 unit PO DAILY 02/06/22 03/10/22 Unknown History progesterone micronized 100 mg 100 mg PO Q3D 90 Days #40 cap 02/25/22 03/10/22 Unknown Rx capsule ascorbic acid (vitamin C) 1,500 mg 1,500 mg PO DAILY 03/10/22 03/10/22 Unknown History tablet,extended release Allergies Allergy/AdvReac Type Severity Reaction Status Date / Time No Known Allergies Allergy Verified 03/10/22 08:55 PFSH Acute PFSH: Medical History Degenerative arthritis Depression Essential thrombocythemia Fungal infection of nail History of colon cancer diagnosed in 1999 Osteopenia Poor circulation of extremity Surgical History H/O tubal ligation H/O: hysterectomy History of appendectomy History of colon resection Family History Other CAD (coronary artery disease) Lung disease Stroke Social History Smoking and tobacco status: current every day smoker Alcohol intake: never Vitals/I&O/Wt Last Vital Signs Temp 97.9 F 03/12/22 06:47 Pulse 69 03/12/22 06:47 Resp 18 03/12/22 06:47 BP 109/56 03/12/22 06:47 Pulse Ox 99 03/12/22 06:47 Weight last 48 hrs Weight 100 lb Physical Exam Narrative: General : Patient is well developed , no acute distress, oriented x3 Head : Normal cephalic, a-traumatic. Ears : Pinnae and external canal are normal. Hearing is normal. Eyes : PERRLA, Sclera and injection are normal. No conjunctival discharge. Nose : Mucous membranes are without erythema. Throat : buccal mucosa is normal, gums are without significant recession or hypertrophy. Lungs : Equal chest rise bilaterally, no use of accessory muscles, trachea is midline. Cor : Rate and rhythm are normal. Abdomen : Soft, ND, NT, no g/r/m Extremities : No edema, no cyanosis or clubbing, dorsalis pedis pulses are present bilaterally, non-tender to palpation of calves. Upper extremities are normal bilaterally. Back : non-tender to palpation, no CVA tenderness. Neuro : CN II - XII intact, Upper and lower extremities have equal and full strength A&P Assessment and plan (1) Diarrhea: Status: Acute (2) Hematochezia: Status: Acute Plan Colonoscopy with possible hemorrhoidal banding The risks and benefits of the procedure, including bleeding, infection, intestinal perforation requiring surgery, missed lesion, or explained to the patient. He is understanding of the risks and wishes to proceed. Attestations Medical Necessity Statement*: Patient will be discharged home Coding Level of Care Code Acute [facility] Patrol Commander for [facility] Diagnoses Diarrhea R19.7 Hematochezia K92.1
[2022-03-12 08:37] VITALS: BP 122/69; PULSE 64; RESP 18; TEMP 36.6; O2SAT 100
[2022-03-12 08:51] VITALS: BP 124/79; PULSE 67; RESP 18; TEMP 36.5; O2SAT 99
--- NOTE | 2022-03-12 16:17 | ANE.PACU2 ---
Inpatient post-anesthesia follow up: Airway intact: Yes Vital signs: Temperature 97.7 F Pulse Rate 67 Respiratory Rate 18 Blood Pressure 124/79 Pulse Oximetry 99 Oxygen Delivery Me thod Room Air Oxygen Flow Rate Fraction of Inspir ed Oxygen Hydration adequate: Yes Nausea and vomiting: No Pain level: 1 Mental status: Baseline
== END 2022-03-12 09:02 | disposition home or self-care (01) ==
PROVIDERS: PCP Family Medicine; Visit Provider Surgery
PROC: 0DJD8ZZ Inspection of Lower Intestinal Tract, Via Natural or Artificial Opening Endoscopic (ICD-10-PCS; CPT 45378; principal; 2022-03-12 07:30)
DX: R19.7 Diarrhea, unspecified (principal); K64.4 Residual hemorrhoidal skin tags; K92.1 Melena; Z85.038 Personal history of other malignant neoplasm of large intestine; Z90.49 Acquired absence of other specified parts of digestive tract; Z79.82 Long term (current) use of aspirin; F32.9 Major depressive disorder, single episode, unspecified; F17.210 Nicotine dependence, cigarettes, uncomplicated; K21.9 Gastro-esophageal reflux disease without esophagitis
CPT/HCPCS: 45378; J2704; J7030

== ENCOUNTER 2022-04-01 12:32 | Oncology outpatient (recurring) (ONCR) | payer MEDICARE, SELFPAY ==
[2022-04-01 13:01] LABS: Basophils % 0.6 %; Eosinophils % 0.4 %; Hematocrit 37.9 % (37.0-47.0); Hemoglobin 12.3 g/dL (11.5-15.3); Lymphocytes % 37.6 %; Mean Corpuscular HGB Conc 32.5 g/dL (30.0-36.0); Mean Corpuscular Volume 110.8 fl (81-99); Mean Platelet Volume 8.4 fL (7.4-10.4); Monocytes # 0.4 10^3/uL (0.2-0.9); Monocytes % 7.5 %; Neutrophils # 2.86 10^3/uL (1.8-7.7); Neutrophils % 53.7 %; Nucleated Red Blood Cells % 0 %; Platelet Count 314 10^3/cmm (130-400); Red Blood Count 3.42 10^6/uL (4.1-5.3); Red Cell Distribution Width 13.4 % (12.1-15.1); White Blood Count 5.3 10^3/uL (4.0-10.0)
[2022-04-01 13:24] LABS: Alanine Aminotransferase 9 U/L (0-33); Albumin Level 4.7 g/dL (3.5-5.2); Alkaline Phosphatase 70 IU/L (35-105); Anion Gap 13.5 (5-19); Aspartate Amino Transferase 22 U/L (0-32); Blood Urea Nitrogen 17 mg/dL (8-23); Calcium 9.4 mg/dL (8.5-10.5); Carbon Dioxide 27 mmol/L (22-29); Chloride 103 mmol/L (98-107); Globulin 2.8 g/dL (1.3-4.6); Glucose 149 mg/dL (65-115); Lactate Dehydrogenase 196 U/L (135-214); Osmolality Calculated 292 mOsm/kg (285-295); Potassium 4.5 mmol/L (3.5-5.1); Sodium 139 mmol/L (136-145); Total Bilirubin 0.3 mg/dL (0.15-1.2); Total Protein 7.5 g/dL (6.6-8.7)
== END 2022-04-22 23:59 | disposition home or self-care (01) ==
PROVIDERS: Nurse Practitioner; PCP Family Medicine; Visit Provider Internal Medicine Medical Oncology
DX: D47.3 Essential (hemorrhagic) thrombocythemia (principal); Z79.899 Other long term (current) drug therapy; R53.83 Other fatigue; Z79.82 Long term (current) use of aspirin
CPT/HCPCS: 80053; 83615; 85025; 99214

== ENCOUNTER → 2022-04-09 11:09 | Outpatient (BNVA) | payer MEDICARE, SELFPAY | PROVIDERS: PCP Family Medicine; Visit Provider Surgery | DX: Z09 Encounter for follow-up examination after completed treatment for conditions other than malignant neoplasm (principal); K64.4 Residual hemorrhoidal skin tags | CPT/HCPCS: 99213 ==

== ENCOUNTER 2022-04-23 14:43 | Outpatient (CLI) | payer MEDICARE, SELFPAY ==
--- NOTE | 2022-04-23 14:52 | MM_ITS ---
WS: [id number] BILATERAL 3D TOMOSYNTHESIS DIGITAL SCREENING MAMMOGRAPHY WITH CAD CLINICAL INFORMATION: screening mammogram HISTORY: Screening mammogram. No current complaints. COMPARISON: December 30, 2020 TECHNIQUE: Bilateral CC and MLO views. FINDINGS: Scattered fibroglandular densities bilaterally. Incidental punctate calcification RIGHT breast. No hemphill spicious focal mass, asymmetry, calcifications, or architectural distortion. No evidence of malignanc y. MM/[place] [id number] IMPRESSION: BI-RADS: 2-Benign FOLLOW UP: 1 Year Follow-up Recommend return to annual screening mammography.
--- NOTE | 2022-04-23 15:30 | XR_ITS ---
WS: [id number] SCREENING DEXA SCAN [employer] CLINICAL INFORMATION: post-menopausal COMPARISON: None. FINDINGS: The L1-L4 bone mineral density measures 0.933 g/cm2. This corresponds to a T score score of -2.1 and Z score of 0.4. Left femoral neck bone mineral density measures 0.553 g/cm2. This corresponds to a T score of -3.6 an d Z score of -1.5. Right femoral neck bone mineral density measures 0.704 g/cm2. This corresponds to a T score -2.4of an d Z score of -0.3. Mean femoral neck bone mineral density measures 0.629 g/cm2. This corresponds to a T score of -3.0 an d Z score of -0.9. XR/XR DEXA axial skeleton* [id number] IMPRESSION: Osteopenia lumbar spine. Osteoporosis femoral necks. Patient's FRAX calculated 10 year probability for major osteoporotic fracture i s 36.9 % and osteoporotic hip fracture is 24.6%.
== END 2022-04-23 14:44 | disposition home or self-care (01) ==
LOC: RAD 14:46
PROVIDERS: PCP Family Medicine; Visit Provider Family Medicine
DX: Z12.31 Encounter for screening mammogram for malignant neoplasm of breast (principal); Z78.0 Asymptomatic menopausal state; M85.88 Other specified disorders of bone density and structure, other site
CPT/HCPCS: 77063; 77067; 77080

== ENCOUNTER 2022-08-11 12:33 | Oncology outpatient (recurring) (ONCR) | payer MEDICARE, SELFPAY ==
[2022-08-11 12:55] LABS: Basophils % 0.3 %; Eosinophils % 0.3 %; Hemoglobin 11.7 g/dL (11.5-15.3); Lymphocytes # 1.7 10^3/uL (0.8-4.8); Lymphocytes % 27.3 %; Mean Corpuscular HGB Conc 33.4 g/dL (30.0-36.0); Mean Corpuscular Hemoglobin 36.7 pg (28.0-34.0); Mean Corpuscular Volume 109.7 fl (81-99); Mean Platelet Volume 8.1 fL (7.4-10.4); Monocytes # 0.6 10^3/uL (0.2-0.9); Neutrophils # 3.87 10^3/uL (1.8-7.7); Neutrophils % 62.1 %; Nucleated Red Blood Cells % 0 %; Platelet Count 266 10^3/cmm (130-400); Red Blood Count 3.19 10^6/uL (4.1-5.3); Red Cell Distribution Width 12.5 % (12.1-15.1); White Blood Count 6.2 10^3/uL (4.0-10.0)
[2022-08-11 13:16] LABS: Alanine Aminotransferase 8 U/L (0-33); Albumin Level 4.3 g/dL (3.5-5.2); Alkaline Phosphatase 74 U/L (35-105); Anion Gap 16.2 (5-19); Aspartate Amino Transferase 22 U/L (0-32); Blood Urea Nitrogen 21 mg/dL (8-23); Calcium 9.5 mg/dL (8.5-10.5); Carbon Dioxide 28 mmol/L (22-29); Chloride 104 mmol/L (98-107); Globulin 3.1 g/dL (1.3-4.6); Glucose 132 mg/dL (65-115); Lactate Dehydrogenase 225 U/L (135-214); Osmolality Calculated 303 mOsm/kg (285-295); Potassium 4.2 mmol/L (3.5-5.1); Sodium 144 mmol/L (136-145); Total Bilirubin 0.2 mg/dL (0.15-1.2); Total Protein 7.4 g/dL (6.6-8.7)
== END 2022-08-22 23:59 | disposition home or self-care (01) ==
PROVIDERS: PCP Family Medicine; Visit Provider Internal Medicine Medical Oncology
DX: D47.3 Essential (hemorrhagic) thrombocythemia (principal); D64.9 Anemia, unspecified; Z79.82 Long term (current) use of aspirin; Z79.899 Other long term (current) drug therapy
CPT/HCPCS: 36415; 80053; 83615; 85025; 99214

== ENCOUNTER 2022-11-25 11:58 | Oncology outpatient (recurring) (ONCR) | payer MEDICARE, SELFPAY ==
[2022-11-25 13:07] LABS: Basophils % 0.5 %; Eosinophils % 0.3 %; Hemoglobin 11.5 g/dL (11.5-15.3); Lymphocytes # 2.4 10^3/uL (0.8-4.8); Lymphocytes % 39.8 %; Mean Corpuscular HGB Conc 32.9 g/dL (30.0-36.0); Mean Corpuscular Hemoglobin 35.2 pg (28.0-34.0); Mean Platelet Volume 7.9 fL (7.4-10.4); Monocytes # 0.6 10^3/uL (0.2-0.9); Monocytes % 10.5 %; Neutrophils # 2.97 10^3/uL (1.8-7.7); Neutrophils % 48.6 %; Nucleated Red Blood Cells % 0 %; Platelet Count 256 10^3/cmm (130-400); Red Blood Count 3.27 10^6/uL (4.1-5.3); Red Cell Distribution Width 13.1 % (12.1-15.1); White Blood Count 6.1 10^3/uL (4.0-10.0)
[2022-11-25 13:21] LABS: Alanine Aminotransferase 13 U/L (0-33); Albumin Level 4.1 g/dL (3.5-5.2); Alkaline Phosphatase 78 U/L (35-105); Anion Gap 14.3 (5-19); Aspartate Amino Transferase 23 U/L (0-32); Blood Urea Nitrogen 16 mg/dL (8-23); Calcium 9.3 mg/dL (8.5-10.5); Carbon Dioxide 28 mmol/L (22-29); Chloride 102 mmol/L (98-107); Globulin 3.3 g/dL (1.3-4.6); Glucose 94 mg/dL (65-115); Lactate Dehydrogenase 197 U/L (135-214); Osmolality Calculated 291 mOsm/kg (285-295); Potassium 4.3 mmol/L (3.5-5.1); Sodium 140 mmol/L (136-145); Total Bilirubin 0.4 mg/dL (0.15-1.2); Total Protein 7.4 g/dL (6.6-8.7)
== END 2022-12-20 23:59 | disposition home or self-care (01) ==
PROVIDERS: PCP Family Medicine; Visit Provider Internal Medicine Medical Oncology
DX: D47.3 Essential (hemorrhagic) thrombocythemia (principal); Z79.899 Other long term (current) drug therapy; R53.83 Other fatigue; Z79.82 Long term (current) use of aspirin; D64.9 Anemia, unspecified
CPT/HCPCS: 36415; 80053; 83615; 85025; 99213; 99214

== ENCOUNTER 2023-02-24 12:46 | Oncology outpatient (recurring) (ONCR) | payer MEDICARE, SELFPAY ==
[2023-02-24 13:07] VITALS: BP 106/63; PULSE 75; RESP 18; TEMP 36.8; O2SAT 96
[2023-02-24 13:22] LABS: Basophils % 0.5 %; Eosinophils % 0.5 %; Hematocrit 33.6 % (37.0-47.0); Hemoglobin 11.2 g/dL (11.5-15.3); Lymphocytes # 2.2 10^3/uL (0.8-4.8); Lymphocytes % 37.5 %; Mean Corpuscular HGB Conc 33.3 g/dL (30.0-36.0); Mean Corpuscular Hemoglobin 35.2 pg (28.0-34.0); Mean Corpuscular Volume 105.7 fl (81-99); Monocytes # 0.6 10^3/uL (0.2-0.9); Neutrophils # 2.89 10^3/uL (1.8-7.7); Neutrophils % 50.3 %; Nucleated Red Blood Cells % 0 %; Platelet Count 265 10^3/cmm (130-400); Red Blood Count 3.18 10^6/uL (4.1-5.3); Red Cell Distribution Width 13.1 % (12.1-15.1); White Blood Count 5.7 10^3/uL (4.0-10.0)
[2023-02-24 13:41] LABS: Alanine Aminotransferase 10 U/L (0-33); Albumin Level 4.3 g/dL (3.5-5.2); Alkaline Phosphatase 82 U/L (35-105); Aspartate Amino Transferase 22 U/L (0-32); Blood Urea Nitrogen 17 mg/dL (8-23); Carbon Dioxide 27 mmol/L (22-29); Chloride 102 mmol/L (98-107); Globulin 3.3 g/dL (1.3-4.6); Glucose 127 mg/dL (65-115); Osmolality Calculated 291 mOsm/kg (285-295); Sodium 139 mmol/L (136-145); Total Bilirubin 0.3 mg/dL (0.15-1.2); Total Protein 7.6 g/dL (6.6-8.7)
== END 2023-03-22 23:59 | disposition home or self-care (01) ==
PROVIDERS: PCP Family Medicine; Visit Provider Internal Medicine Medical Oncology
DX: D47.3 Essential (hemorrhagic) thrombocythemia (principal); R53.83 Other fatigue; Z79.82 Long term (current) use of aspirin; Z79.899 Other long term (current) drug therapy
CPT/HCPCS: 36415; 80053; 85025; 99214

== ENCOUNTER → 2023-03-11 11:56 | Outpatient (BNVA) | payer MEDICARE, SELFPAY | PROVIDERS: PCP Family Medicine; Visit Provider Family Medicine | DX: R53.83 Other fatigue (principal); D53.1 Other megaloblastic anemias, not elsewhere classified; E53.8 Deficiency of other specified B group vitamins | CPT/HCPCS: 82607; 82746; 84439; 84443; 85025 ==

== ENCOUNTER 2023-05-31 13:04 | Oncology outpatient (recurring) (ONCR) | payer MEDICARE, SELFPAY ==
[2023-05-31 13:27] VITALS: BP 96/64; PULSE 78; RESP 16; TEMP 36.9; O2SAT 98
[2023-05-31 13:53] LABS: Basophils % 0.3 %; Eosinophils % 0.2 %; Hematocrit 34.9 % (36-47); Lymphocytes # 1.8 10^3/uL (0.8-4.8); Lymphocytes % 30.8 %; Mean Corpuscular Hemoglobin 35.5 pg (27-33); Mean Corpuscular Volume 107.7 fl (85-98); Monocytes # 0.6 10^3/uL (0.2-0.9); Monocytes % 10.9 %; Neutrophils # 3.37 10^3/uL (1.8-7.7); Neutrophils % 57.3 %; Nucleated Red Blood Cells % 0 %; Platelet Count 306 10^3/cmm (157-399); Red Blood Count 3.24 10^6/uL (3.85-5.65); White Blood Count 5.88 10^3/uL (3.29-11.43)
[2023-05-31 14:13] LABS: Alanine Aminotransferase 13 U/L (0-33); Albumin Level 4.4 g/dL (3.5-5.2); Alkaline Phosphatase 86 U/L (35-105); Anion Gap 14.2 (5-19); Aspartate Amino Transferase 21 U/L (0-32); Blood Urea Nitrogen 18 mg/dL (8-23); Calcium 9.3 mg/dL (8.5-10.5); Carbon Dioxide 27 mmol/L (22-29); Chloride 102 mmol/L (98-107); Globulin 3.1 g/dL (1.3-4.6); Glucose 116 mg/dL (65-115); Osmolality Calculated 291 mOsm/kg (285-295); Potassium 4.2 mmol/L (3.5-5.1); Sodium 139 mmol/L (136-145); Total Bilirubin 0.3 mg/dL (0.15-1.2); Total Protein 7.5 g/dL (6.6-8.7)
== END 2023-06-22 23:59 | disposition home or self-care (01) ==
PROVIDERS: Nurse Practitioner Family; PCP Family Medicine; Visit Provider Internal Medicine Medical Oncology
DX: D47.3 Essential (hemorrhagic) thrombocythemia (principal); R53.83 Other fatigue; D64.9 Anemia, unspecified; Z79.82 Long term (current) use of aspirin; Z79.899 Other long term (current) drug therapy
CPT/HCPCS: 36415; 80053; 85025; 99213

== ENCOUNTER 2023-06-25 10:46 | Outpatient (CLI) | payer MEDICARE, SELFPAY ==
--- NOTE | 2023-06-25 11:08 | MM_ITS ---
WS: [id number] BILATERAL 3D TOMOSYNTHESIS DIGITAL SCREENING MAMMOGRAPHY WITH CAD CLINICAL INFORMATION: SCREENING HISTORY: Screening mammogram. No current complaints. COMPARISON: 2021 TECHNIQUE: Bilateral CC and MLO views. FINDINGS: The breasts are composed of heterogeneous fibroglandular density tissue, which can limit the detectio n of small underlying mass lesions. No suspicious mass, asymmetry, calcifications, or architectural d istortion. No evidence of malignancy. A few incidental punctate calcifications. IMPRESSION: MM/[place] [id number] BI-RADS: 2-Benign FOLLOW UP: 1 Year Follow-up Recommend return to annual screening mammography.
== END 2023-06-25 10:47 | disposition home or self-care (01) ==
LOC: RAD 10:47
PROVIDERS: PCP Family Medicine; Visit Provider Family Medicine
DX: Z12.31 Encounter for screening mammogram for malignant neoplasm of breast (principal)
CPT/HCPCS: 77063; 77067

== ENCOUNTER 2023-09-01 13:19 | Oncology outpatient (recurring) (ONCR) | payer MEDICARE, SELFPAY ==
[2023-09-01 13:36] VITALS: BP 113/76; PULSE 67; RESP 16; TEMP 36.7; O2SAT 97
[2023-09-01 14:05] LABS: Basophils % 0.3 %; Eosinophils % 0.2 %; Hematocrit 36.6 % (36-47); Lymphocytes # 1.8 10^3/uL (0.8-4.8); Lymphocytes % 30.6 %; Mean Corpuscular HGB Conc 33.3 g/dL (30-55); Mean Corpuscular Hemoglobin 34.6 pg (27-33); Mean Corpuscular Volume 103.7 fl (85-98); Mean Platelet Volume 8.2 fL (7.4-10.4); Monocytes # 0.5 10^3/uL (0.2-0.9); Monocytes % 7.9 %; Neutrophils # 3.47 10^3/uL (1.8-7.7); Neutrophils % 60.7 %; Nucleated Red Blood Cells % 0 %; Platelet Count 298 10^3/cmm (157-399); Red Blood Count 3.53 10^6/uL (3.85-5.65); Red Cell Distribution Width 12.5 % (12.1-15.1); White Blood Count 5.72 10^3/uL (3.29-11.43)
[2023-09-01 14:27] LABS: Alanine Aminotransferase 16 U/L (0-33); Albumin Level 4.4 g/dL (3.5-5.2); Alkaline Phosphatase 79 U/L (35-105); Blood Urea Nitrogen 17 mg/dL (8-23); Calcium 9.7 mg/dL (8.5-10.5); Carbon Dioxide 24 mmol/L (22-29); Chloride 102 mmol/L (98-107); Chol HDL Ratio 2.07 mg/dL (0.0-4.40); Cholesterol 151 mg/dL (0-200); Globulin 3.5 g/dL (1.3-4.6); Glucose 100 mg/dL (65-115); HDL Cholesterol 73 mg/dL (60-100); LDL Cholesterol Calculated 63 mg/dL (50-129); LDL HDL Ratio 0.86 RATIO (0.00-3.22); Osmolality Calculated 288 mOsm/kg (285-295); Sodium 138 mmol/L (136-145); Total Bilirubin 0.6 mg/dL (0.15-1.2); Total Protein 7.9 g/dL (6.6-8.7); Triglycerides 73 mg/dL (0-150)
[2023-09-01 14:29] LABS: Anion Gap 16.2 (5-19); Aspartate Amino Transferase 32 U/L (0-32); Potassium 4.2 mmol/L (3.5-5.1)
== END 2023-09-22 23:59 | disposition home or self-care (01) ==
PROVIDERS: Nurse Practitioner Family; PCP Family Medicine; Visit Provider Internal Medicine Medical Oncology
DX: D47.3 Essential (hemorrhagic) thrombocythemia (principal); R53.83 Other fatigue; D64.9 Anemia, unspecified; Z79.82 Long term (current) use of aspirin; Z79.899 Other long term (current) drug therapy
CPT/HCPCS: 36415; 80053; 80061; 85025; 99213

== ENCOUNTER 2023-10-13 11:11 | Oncology outpatient (recurring) (ONCR) | payer MEDICARE, SELFPAY ==
[2023-10-13 11:31] LABS: Basophils % 0.6 %; Eosinophils % 0.4 %; Hematocrit 39.5 % (36-47); Lymphocytes % 38.8 %; Mean Corpuscular HGB Conc 33.9 g/dL (30-55); Mean Corpuscular Hemoglobin 34.4 pg (27-33); Mean Corpuscular Volume 101.5 fl (85-98); Mean Platelet Volume 8.5 fL (7.4-10.4); Monocytes # 0.4 10^3/uL (0.2-0.9); Monocytes % 7.8 %; Neutrophils # 2.75 10^3/uL (1.8-7.7); Neutrophils % 52.2 %; Nucleated Red Blood Cells % 0 %; Platelet Count 279 10^3/cmm (157-399); Red Blood Count 3.89 10^6/uL (3.85-5.65); Red Cell Distribution Width 11.9 % (12.1-15.1); White Blood Count 5.26 10^3/uL (3.29-11.43)
[2023-10-13 12:06] LABS: Hepatitis C Virus Antibody Non-Reactive (Nonreactive)
== END 2023-10-21 23:59 | disposition home or self-care (01) ==
PROVIDERS: Internal Medicine; PCP Family Medicine; Visit Provider Internal Medicine Medical Oncology
DX: Z11.59 Encounter for screening for other viral diseases; D47.3 Essential (hemorrhagic) thrombocythemia; Z53.9 Procedure and treatment not carried out, unspecified reason
CPT/HCPCS: 36415; 85025; 86803

== ENCOUNTER 2023-12-02 12:02 | Oncology outpatient (recurring) (ONCR) | payer MEDICARE, SELFPAY ==
[2023-12-02 12:32] LABS: Basophils % 0.4 %; Eosinophils # 0.1 10^3/uL (0.0-0.8); Hematocrit 37.5 % (36-47); Lymphocytes # 1.6 10^3/uL (0.8-4.8); Mean Corpuscular HGB Conc 32.8 g/dL (30-55); Mean Corpuscular Hemoglobin 33.7 pg (27-33); Mean Corpuscular Volume 102.7 fl (85-98); Mean Platelet Volume 8.2 fL (7.4-10.4); Monocytes # 0.8 10^3/uL (0.2-0.9); Monocytes % 15.5 %; Neutrophils # 2.72 10^3/uL (1.8-7.7); Neutrophils % 51.9 %; Nucleated Red Blood Cells % 0 %; Platelet Count 247 10^3/cmm (157-399); Red Blood Count 3.65 10^6/uL (3.85-5.65); Red Cell Distribution Width 12.6 % (12.1-15.1); White Blood Count 5.23 10^3/uL (3.29-11.43)
[2023-12-02 12:49] LABS: Alanine Aminotransferase 16 U/L (0-33); Albumin Level 4.1 g/dL (3.5-5.2); Alkaline Phosphatase 81 U/L (35-105); Aspartate Amino Transferase 25 U/L (0-32); Blood Urea Nitrogen 19 mg/dL (8-23); Calcium 9.6 mg/dL (8.5-10.5); Carbon Dioxide 27 mmol/L (22-29); Chloride 105 mmol/L (98-107); Globulin 3.5 g/dL (1.3-4.6); Glucose 92 mg/dL (65-115); Osmolality Calculated 296 mOsm/kg (285-295); Sodium 142 mmol/L (136-145); Total Bilirubin 0.5 mg/dL (0.15-1.2); Total Protein 7.6 g/dL (6.6-8.7)
[2023-12-02 13:02] LABS: Lactate Dehydrogenase 239 U/L (135-214)
== END 2023-12-21 23:59 | disposition home or self-care (01) ==
PROVIDERS: Internal Medicine; PCP Family Medicine; Visit Provider Internal Medicine Medical Oncology
DX: D47.3 Essential (hemorrhagic) thrombocythemia (principal); R53.83 Other fatigue; D64.9 Anemia, unspecified; Z79.82 Long term (current) use of aspirin; Z79.899 Other long term (current) drug therapy
CPT/HCPCS: 36415; 80053; 83615; 85025; 99214

== ENCOUNTER 2024-03-07 11:46 | Oncology outpatient (recurring) (ONCR) | payer MEDICARE, SELFPAY ==
[2024-03-07 12:35] LABS: Basophils % 0.4 %; Eosinophils % 0.4 %; Hematocrit 36.5 % (36-47); Lymphocytes # 1.3 10^3/uL (0.8-4.8); Lymphocytes % 23.4 %; Mean Corpuscular HGB Conc 32.9 g/dL (30-55); Mean Corpuscular Hemoglobin 33.7 pg (27-33); Mean Corpuscular Volume 102.5 fl (85-98); Mean Platelet Volume 8.4 fL (7.4-10.4); Monocytes # 0.7 10^3/uL (0.2-0.9); Monocytes % 12.8 %; Neutrophils # 3.58 10^3/uL (1.8-7.7); Neutrophils % 62.8 %; Nucleated Red Blood Cells % 0 %; Platelet Count 335 10^3/cmm (157-399); Red Blood Count 3.56 10^6/uL (3.85-5.65); Red Cell Distribution Width 13.9 % (12.1-15.1); White Blood Count 5.69 10^3/uL (3.29-11.43)
[2024-03-07 13:00] LABS: Alanine Aminotransferase 13 U/L (0-33); Albumin Level 4.2 g/dL (3.5-5.2); Alkaline Phosphatase 93 U/L (35-105); Anion Gap 13.6 (5-19); Aspartate Amino Transferase 22 U/L (0-32); Blood Urea Nitrogen 15 mg/dL (8-23); Calcium 9.5 mg/dL (8.5-10.5); Carbon Dioxide 27 mmol/L (22-29); Chloride 101 mmol/L (98-107); Globulin 3.6 g/dL (1.3-4.6); Glucose 136 mg/dL (65-115); Lactate Dehydrogenase 223 U/L (135-214); Osmolality Calculated 287 mOsm/kg (285-295); Potassium 4.6 mmol/L (3.5-5.1); Sodium 137 mmol/L (136-145); Total Bilirubin 0.2 mg/dL (0.15-1.2); Total Protein 7.8 g/dL (6.6-8.7)
== END 2024-03-22 23:59 | disposition home or self-care (01) ==
PROVIDERS: Nurse Practitioner Family; PCP Family Medicine; Visit Provider Internal Medicine Medical Oncology
DX: D47.3 Essential (hemorrhagic) thrombocythemia (principal); R53.83 Other fatigue; D64.9 Anemia, unspecified; Z79.82 Long term (current) use of aspirin; Z79.899 Other long term (current) drug therapy
CPT/HCPCS: 36415; 80053; 83615; 85025; 99214

== ENCOUNTER 2024-06-06 12:35 | Oncology outpatient (recurring) (ONCR) | payer MEDICARE, SELFPAY ==
[2024-06-06 13:07] LABS: Basophils % 0.4 %; Eosinophils % 0.2 %; Lymphocytes # 1.6 10^3/uL (0.8-4.8); Lymphocytes % 30.9 %; Mean Corpuscular HGB Conc 32.1 g/dL (30-55); Mean Corpuscular Hemoglobin 33.4 pg (27-33); Mean Corpuscular Volume 104.1 fl (85-98); Mean Platelet Volume 8.2 fL (7.4-10.4); Monocytes # 0.6 10^3/uL (0.2-0.9); Monocytes % 11.6 %; Neutrophils # 2.93 10^3/uL (1.8-7.7); Neutrophils % 56.7 %; Nucleated Red Blood Cells % 0 %; Platelet Count 359 10^3/cmm (157-399); Red Blood Count 3.65 10^6/uL (3.85-5.65); Red Cell Distribution Width 12.7 % (12.1-15.1); White Blood Count 5.17 10^3/uL (3.29-11.43)
[2024-06-06 13:30] LABS: Alanine Aminotransferase 11 U/L (0-33); Albumin Level 4.3 g/dL (3.5-5.2); Alkaline Phosphatase 88 U/L (35-105); Anion Gap 14.4 (5-19); Aspartate Amino Transferase 24 U/L (0-32); Blood Urea Nitrogen 18 mg/dL (8-23); Calcium 9.1 mg/dL (8.5-10.5); Carbon Dioxide 27 mmol/L (22-29); Chloride 101 mmol/L (98-107); Globulin 3.4 g/dL (1.3-4.6); Glucose 102 mg/dL (65-115); Lactate Dehydrogenase 180 U/L (135-214); Osmolality Calculated 288 mOsm/kg (285-295); Potassium 4.4 mmol/L (3.5-5.1); Sodium 138 mmol/L (136-145); Total Bilirubin 0.3 mg/dL (0.15-1.2); Total Protein 7.7 g/dL (6.6-8.7)
[2024-06-06 13:31] LABS: Creatinine Clr Calc Pharmacy 32.9218
== END 2024-06-22 23:59 | disposition home or self-care (01) ==
PROVIDERS: Nurse Practitioner Family; PCP Family Medicine; Visit Provider Internal Medicine Medical Oncology
DX: D47.3 Essential (hemorrhagic) thrombocythemia (principal); R53.83 Other fatigue; D64.9 Anemia, unspecified; Z79.82 Long term (current) use of aspirin; Z79.899 Other long term (current) drug therapy
CPT/HCPCS: 36415; 80053; 83615; 85025; 99214

== ENCOUNTER 2024-07-21 11:09 | Outpatient (CLI) | payer MEDICARE, SELFPAY ==
--- NOTE | 2024-07-21 11:16 | XR_ITS ---
WS: [id number] DEXA (DUAL ENERGY X-RAY ABSORPTIOMETRY) Bone mineral density was performed using a [employer] machine. HISTORY: OSTEOPOROSIS COMPARISON: 04/23/2022 Lumbar spine BMD (L1-L4): 1.054 g/cm2 T score: -1.1 Z score: 1.3 Total hip BMD: Left: 0.700 g/cm2. T score: -2.4 Z score: -0.3 Right: 0.775 g/cm2. T score: -1.8 Z score: 0.3 10 year probability of a major osteoporotic fracture is 24.2%. Compared to the prior study from 04/23/2022. Lumbar spine bone mineral density has increased by 13.0%. Bilateral hips bone mineral density has increased by 17.3%. XR/XR DEXA axial skeleton* [id number] IMPRESSION: OSTEOPENIA based upon the WHO classification for females. Significant increase in bone mineral density within both the lumbar spine and h ips since the prior study.
--- NOTE | 2024-07-21 11:16 | MM_ITS ---
WS: [id number] BILATERAL SCREENING DIGITAL TOMOSYNTHESIS MAMMOGRAM WITH CAD HISTORY: SCREENING COMPARISON: 06/25/2023, 04/23/2022 Bilateral CC and MLO views with tomosynthesis and synthetic mammography submitted. Computer aided det ection analyzed. Breast composition: There are scattered areas of fibroglandular density. No suspicious masses, microc alcifications or architectural distortion. Benign calcifications in each breast. MM/MM scr BI tomosynthesis [id number] IMPRESSION: BI-RADS: 2 - Benign. FOLLOW UP: 1 Year Follow-up
== END 2024-07-21 11:10 | disposition home or self-care (01) ==
PROVIDERS: PCP Electrodiagnostic Medicine; Visit Provider Electrodiagnostic Medicine
DX: Z12.31 Encounter for screening mammogram for malignant neoplasm of breast (principal); R92.323 Mammographic fibroglandular density, bilateral breasts; R92.1 Mammographic calcification found on diagnostic imaging of breast; Z13.820 Encounter for screening for osteoporosis; M85.80 Other specified disorders of bone density and structure, unspecified site
CPT/HCPCS: 77063; 77067; 77080

== ENCOUNTER 2024-09-13 12:57 | Oncology outpatient (recurring) (ONCR) | payer MEDICARE, SELFPAY ==
[2024-09-13 13:33] LABS: Basophils % 0.6 %; Eosinophils % 0.4 %; Hematocrit 35.7 % (36-47); Lymphocytes # 1.1 10^3/uL (0.8-4.8); Mean Corpuscular HGB Conc 31.9 g/dL (30-55); Mean Corpuscular Volume 103.5 fl (85-98); Mean Platelet Volume 8.1 fL (7.4-10.4); Monocytes # 0.8 10^3/uL (0.2-0.9); Monocytes % 14.1 %; Neutrophils # 3.48 10^3/uL (1.8-7.7); Neutrophils % 64.5 %; Nucleated Red Blood Cells % 0 %; Platelet Count 387 10^3/cmm (157-399); Red Blood Count 3.45 10^6/uL (3.85-5.65); Red Cell Distribution Width 15.3 % (12.1-15.1); White Blood Count 5.39 10^3/uL (3.29-11.43)
[2024-09-13 13:50] LABS: Alanine Aminotransferase 11 U/L (0-33); Albumin Level 3.9 g/dL (3.5-5.2); Alkaline Phosphatase 97 U/L (35-105); Anion Gap 16.3 (5-19); Aspartate Amino Transferase 25 U/L (0-32); Blood Urea Nitrogen 13 mg/dL (8-23); Calcium 9.3 mg/dL (8.5-10.5); Carbon Dioxide 26 mmol/L (22-29); Chloride 99 mmol/L (98-107); Creatinine Clr Calc Pharmacy 34.7361; Globulin 3.7 g/dL (1.3-4.6); Glucose 120 mg/dL (65-115); Lactate Dehydrogenase 201 U/L (135-214); Osmolality Calculated 285 mOsm/kg (285-295); Potassium 4.3 mmol/L (3.5-5.1); Sodium 137 mmol/L (136-145); Total Bilirubin 0.3 mg/dL (0.15-1.2); Total Protein 7.6 g/dL (6.6-8.7)
== END 2024-09-22 23:59 | disposition home or self-care (01) ==
PROVIDERS: Internal Medicine Hematology & Oncology; PCP Electrodiagnostic Medicine; Visit Provider Internal Medicine Medical Oncology
DX: D47.3 Essential (hemorrhagic) thrombocythemia (principal); Z85.038 Personal history of other malignant neoplasm of large intestine; Z87.891 Personal history of nicotine dependence; Z79.899 Other long term (current) drug therapy; Z90.49 Acquired absence of other specified parts of digestive tract
CPT/HCPCS: 36415; 80053; 83615; 85025; 99214

== ENCOUNTER 2024-12-14 13:26 | Oncology outpatient (recurring) (ONCR) | payer MEDICARE, SELFPAY ==
[2024-12-14 14:02] LABS: Basophils % 0.4 %; Eosinophils % 0.4 %; Hematocrit 37.6 % (36-47); Lymphocytes # 1.7 10^3/uL (0.8-4.8); Lymphocytes % 32.8 %; Mean Corpuscular HGB Conc 31.9 g/dL (30-55); Mean Corpuscular Hemoglobin 32.3 pg (27-33); Mean Corpuscular Volume 101.3 fl (85-98); Mean Platelet Volume 8.3 fL (7.4-10.4); Monocytes # 0.5 10^3/uL (0.2-0.9); Monocytes % 8.7 %; Neutrophils # 3.03 10^3/uL (1.8-7.7); Neutrophils % 57.5 %; Nucleated Red Blood Cells % 0 %; Platelet Count 358 10^3/cmm (157-399); Red Blood Count 3.71 10^6/uL (3.85-5.65); Red Cell Distribution Width 12.2 % (12.1-15.1); White Blood Count 5.27 10^3/uL (3.29-11.43)
[2024-12-14 14:16] LABS: Alanine Aminotransferase 10 U/L (0-33); Albumin Level 4.2 g/dL (3.5-5.2); Alkaline Phosphatase 76 U/L (35-105); Anion Gap 13.6 (5-19); Aspartate Amino Transferase 21 U/L (0-32); Blood Urea Nitrogen 23 mg/dL (8-23); Calcium 9.5 mg/dL (8.5-10.5); Carbon Dioxide 28 mmol/L (22-29); Chloride 101 mmol/L (98-107); Creatinine Clr Calc Pharmacy 32.3128; Globulin 3.7 g/dL (1.3-4.6); Glucose 93 mg/dL (65-115); Lactate Dehydrogenase 154 U/L (135-214); Osmolality Calculated 289 mOsm/kg (285-295); Potassium 4.6 mmol/L (3.5-5.1); Sodium 138 mmol/L (136-145); Total Bilirubin 0.2 mg/dL (0.15-1.2); Total Protein 7.9 g/dL (6.6-8.7)
== END 2024-12-20 23:59 | disposition home or self-care (01) ==
PROVIDERS: PCP Electrodiagnostic Medicine; Visit Provider Internal Medicine
DX: D47.3 Essential (hemorrhagic) thrombocythemia (principal); Z85.038 Personal history of other malignant neoplasm of large intestine; Z90.49 Acquired absence of other specified parts of digestive tract; Z79.899 Other long term (current) drug therapy
CPT/HCPCS: 36415; 80053; 83615; 85025; 99213

== ENCOUNTER → 2025-01-16 13:23 | Outpatient (BNVA) | payer MEDICARE, SELFPAY | PROVIDERS: PCP Electrodiagnostic Medicine; Visit Provider Student in an Organized Health Care Education/Training Program | DX: M16.12 Unilateral primary osteoarthritis, left hip (principal); M25.551 Pain in right hip | CPT/HCPCS: 73502; 99204 ==

== ENCOUNTER → 2025-01-26 10:07 | Outpatient (BNVA) | payer MEDICARE, SELFPAY | PROVIDERS: PCP Electrodiagnostic Medicine; Visit Provider Student in an Organized Health Care Education/Training Program | DX: M16.12 Unilateral primary osteoarthritis, left hip (principal) | CPT/HCPCS: 20610; 77002; J3301; J9999 ==

== ENCOUNTER 2025-03-15 11:23 | Oncology outpatient (recurring) (ONCR) | payer MEDICARE, SELFPAY ==
[2025-03-15 12:13] LABS: Hematocrit 37.6 % (36-47); Hemoglobin 12.40 g/dL (11.27-16.99); Mean Corpuscular HGB Conc 33.0 g/dL (30-55); Mean Corpuscular Hemoglobin 33.8 pg (27-33); Mean Corpuscular Volume 102.5 fl (85-98); Nucleated Red Blood Cells % 0 %; Platelet Count 348 10^3/cmm (157-399); Red Blood Count 3.67 10^6/uL (3.85-5.65); White Blood Count 7.07 10^3/uL (3.29-11.43)
[2025-03-15 12:38] LABS: Alanine Aminotransferase 12 U/L (0-33); Albumin Level 4.5 g/dL (3.5-5.2); Alkaline Phosphatase 76 U/L (35-105); Anion Gap 16.4 (5-19); Aspartate Amino Transferase 23 U/L (0-32); Blood Urea Nitrogen 18 mg/dL (8-23); Calcium 9.7 mg/dL (8.5-10.5); Carbon Dioxide 27 mmol/L (22-29); Chloride 101 mmol/L (98-107); Creatinine Clr Calc Pharmacy 32.0773; Globulin 3.1 g/dL (1.3-4.6); Glucose 119 mg/dL (65-115); Osmolality Calculated 293 mOsm/kg (285-295); Potassium 4.4 mmol/L (3.5-5.1); Sodium 140 mmol/L (136-145); Total Protein 7.6 g/dL (6.6-8.7)
== END 2025-03-22 23:59 | disposition home or self-care (01) ==
PROVIDERS: PCP Electrodiagnostic Medicine; Visit Provider Internal Medicine
DX: D47.3 Essential (hemorrhagic) thrombocythemia (principal); Z87.891 Personal history of nicotine dependence; Z79.899 Other long term (current) drug therapy; D53.1 Other megaloblastic anemias, not elsewhere classified
CPT/HCPCS: 36415; 80053; 83615; 85025; 99214

== ENCOUNTER → 2025-05-02 13:01 | Outpatient (BNVA) | payer MEDICARE, SELFPAY | PROVIDERS: PCP Electrodiagnostic Medicine; Visit Provider Student in an Organized Health Care Education/Training Program | DX: M16.12 Unilateral primary osteoarthritis, left hip (principal) | CPT/HCPCS: 99213 ==

== ENCOUNTER 2025-06-14 12:50 | Oncology outpatient (recurring) (ONCR) | payer MEDICARE, SELFPAY ==
[2025-06-14 13:15] LABS: Hematocrit 38.4 % (36-47); Hemoglobin 12.50 g/dL (11.27-16.99); Mean Corpuscular HGB Conc 32.6 g/dL (30-55); Mean Corpuscular Hemoglobin 33.3 pg (27-33); Mean Corpuscular Volume 102.4 fl (85-98); Nucleated Red Blood Cells % 0 %; Platelet Count 346 10^3/cmm (157-399); Red Blood Count 3.75 10^6/uL (3.85-5.65); White Blood Count 6.66 10^3/uL (3.29-11.43)
[2025-06-14 13:34] LABS: Alanine Aminotransferase 12 U/L (0-33); Albumin Level 4.7 g/dL (3.5-5.2); Alkaline Phosphatase 64 U/L (35-105); Anion Gap 16.5 (5-19); Aspartate Amino Transferase 21 U/L (0-32); Blood Urea Nitrogen 22 mg/dL (8-23); Calcium 9.5 mg/dL (8.5-10.5); Carbon Dioxide 26 mmol/L (22-29); Chloride 103 mmol/L (98-107); Globulin 2.9 g/dL (1.3-4.6); Glucose 107 mg/dL (65-115); Osmolality Calculated 296 mOsm/kg (285-295); Potassium 4.5 mmol/L (3.5-5.1); Sodium 141 mmol/L (136-145); Total Protein 7.6 g/dL (6.6-8.7)
== END 2025-06-22 23:59 | disposition home or self-care (01) ==
PROVIDERS: Nurse Practitioner Family; PCP Electrodiagnostic Medicine; Visit Provider Internal Medicine
DX: D47.3 Essential (hemorrhagic) thrombocythemia (principal); Z87.891 Personal history of nicotine dependence; Z85.038 Personal history of other malignant neoplasm of large intestine; K64.4 Residual hemorrhoidal skin tags
CPT/HCPCS: 36415; 80053; 83615; 85025; 99214